=== PATIENT | male | born 1985 | race Caucasian/White ===

== ENCOUNTER 2024-01-04 14:26 | Emergency (ER) | payer OTHER, SELFPAY ==
[2024-01-04 14:35] VITALS: BP 75/49; BP 88/30; PULSE 80; PULSE 85; RESP 14; TEMP 36.9; O2SAT 94; BMI 18.2
[2024-01-04 14:43] VITALS: BP 83/34; PULSE 81; RESP 12; TEMP 37.5; O2SAT 93
--- NOTE | 2024-01-04 14:46 | ECG_ITS ---
Test Reason : SEIZURE Blood Pressure : / mmHG Vent. Rate : 076 BPM Atrial Rate : 076 BPM P-R Int : 170 ms QRS Dur : 110 ms QT Int : 422 ms P-R-T Axes : 066 077 035 degrees QTc Int : 474 ms Normal sinus rhythm Possible Left atrial enlargement Borderline ECG No previous ECGs available Referred By: Vanna Owusu Electronically Signed By:GERMAIN DIAZ MD
[2024-01-04] MEDS: 0.9 % Sodium Chloride 1,000 ML 999 ML IV (14:49)
--- NOTE | 2024-01-04 14:49 | PC.NURSE ---
Pt presents to ED via EMS from [facility] bus, bystander witnessed pt have tonic clonic seizure and pt was foaming at mouth. When EMS arrived, pt was alert and combative with fire (swinging and hitting). EMS sedated pt with 4 mg of Versed IM. Pt was hypotensive with EMS, they gave 500 mL of NS with no effect. Suspected drug use per EMS. Pt is responsive only to painful stimuli for brief periods, does not answer any questions. Breathing even, RR 10-14. Skin warm to touch, dry. Rectal temp afebrile. Pt placed on media monitor, NSR. RA SPO2 92-93%, pt placed on 2L O2 NC and improves to 96%. Seizure pads in place.
[2024-01-04 14:55] VITALS: BP 84/37; PULSE 79; RESP 12; O2SAT 96
[2024-01-04 15:01] LABS: Glucose, Whole Blood 119 mg/dL (60-115)
--- NOTE | 2024-01-04 15:04 | PC.NURSE ---
Pt awake now, answering some questions, able to tell RNs his name and date. Not answering other questions, unsure what happened today. Denies pain.
[2024-01-04 15:05] VITALS: BP 114/48; PULSE 95; RESP 16; O2SAT 99
--- NOTE | 2024-01-04 15:08 | ED_ITS ---
HPI - General Adult General Chief complaint: Altered Mental Status Stated complaint: ?SZ VS DRUG USE PER EMS Time Seen by Provider: 01/04/24 15:07 Source: patient Mode of arrival: ambulatory Limitations: no limitations History of Present Illness HPI narrative: unknown male came in after was found on [employer] bus unresponsive, questionable witnessed seizure by bystander patient was combative with EMS and staff needed 4 mg of Versed, on arrival patient was obtunded but responds to painful stimuli initially patient had hypotension was given fluids, after searching patient by security personnel found to have recreational drugs in his pocket possibly heroin, and cocaine. Related Data Allergies Allergy/AdvReac Type Severity Reaction Status Date / Time Unable to Assess Allergy Unverified 01/04/24 14:46 Review of Systems Review of Systems: all other systems are reviewed and are negative Constitutional: Reports as per HPI and Reports no additional constitutional complaints Eyes: Reports as per HPI and Reports no additional eye complaints Reports system reviewed and no additional complaints, except as documented Cardiovascular: Reports as per HPI and Reports no additional cardiovascular complaints Respiratory: Reports as per HPI and Reports no additional respiratory complaints Gastrointestinal: Reports as per HPI and Reports no additional gastrointestinal complaints Genitourinary: Reports no additional female genitourinary complaints Musculoskeletal: Reports no additional musculoskeletal complaints Skin/Breast: Reports system reviewed and no additional complaints, except as docu Psychiatric: Reports no additional psychiatric complaints Endocrine: Reports no additional endocrine complaints Hematologic/Lymphatic: Reports no additional hematologic/lymphatic complaints Allergic/Immunologic: Reports no additional allergic/immunologic complaints Reports system reviewed and no additional complaints, except as documented and Reports Abnormal speech present [facility] Social History Social History Advance Directives: No Physical Exam ED Vital Signs: Vital Signs - 24 hr 01/04/24 14:35 01/04/24 14:43 01/04/24 14:55 Temperature 98.5 F 99.5 F Pulse Rate 85 81 79 Respiratory Rate 14 12 12 Blood Pressure 88/30 L 83/34 L 84/37 L Pulse Oximetry 93 96 Oxygen Delivery Method Room Air Nasal Cannula Oxygen Flow Rate 2 01/04/24 15:05 Temperature Pulse Rate 95 Respiratory Rate 16 Blood Pressure 114/48 L Pulse Oximetry 99 Oxygen Delivery Method Room Air Oxygen Flow Rate BMI result Body Mass Index 18.2 Vital signs have been reviewed and appear to be correct. Blood pressure was low then improved after IV fluids.. Heart rate normal. Respiratory rate normal. Temperature normal. Oxygen saturation normal. Appearance: initially patient was only responding to painful stimuli, patient now is able to responds to verbal stimuli, carry on normal conversation, patient now is AAO x3, stated that he fell a sleep on the bus. patient now will leave against medical advice I discussed advantage and disadvantage of leaving AMA patient adamantly wants to leave, and refusing physical exam, patient declined SI or HI, this point patient is competent to make his own decision. Medications Administered Generic Name Dose Route Start Last Admin Trade Name Freq PRN Reason Stop Dose Admin Sodium Chloride 1,000 mls @ 999 mls/hr 01/04/24 15:00 01/04/24 14:49 Ns IV 01/04/24 16:00 999 mls/hr .Q1H1M FABBY Administration Medical Decision Making Differential Diagnosis Differential Diagnoses: The differential diagnosis associated with the presentation includes ( polysubstance abuse, dehydration, seizure.) Admission/Observation Consideration of admission/observation: Escalation of care including admission/observation considered Lab Data Labs: Lab Results 01/04/24 Range/Units 14:38 POC Glucose 119 H (60-115) mg/dL Discharge Plan Discharge Clinical Impression: Substance abuse Patient Disposition: Left Against Medical Advice
--- NOTE | 2024-01-04 15:35 | PC.NURSE ---
Pt initially difficult to arouse on arrival however after MD assessment pt increasingly agitated. Screaming I want to get the fuck out of here, Im fine, I want nothing from you people Security to bedside to assist, no hands on needed, verbal deescalation attempted with little effect. Adilene DENTON and Dr Owusu to bedside, pt alert/oriented x 3 and request to leave despite AMA warnings and risk discussed. IV removed and pt assisted to decon to leave.
[2024-01-04 16:25] VITALS: BP 114/48; PULSE 95; RESP 16; TEMP 36.9; O2SAT 98
== END 2024-01-04 16:27 | disposition left against medical advice (07) ==
PROVIDERS: Emergency Provider Emergency Medicine
DX: F19.10 Other psychoactive substance abuse, uncomplicated (principal); I95.9 Hypotension, unspecified
CPT/HCPCS: 82947; 93005; 99283; 99285

== ENCOUNTER → 2024-01-04 14:49 | Outpatient (BNV) | payer OTHER, SELFPAY | PROVIDERS: Emergency Provider Emergency Medicine; Visit Provider Internal Medicine Cardiovascular Disease | DX: R56.9 Unspecified convulsions (principal) | CPT/HCPCS: 93010 ==

== ENCOUNTER 2024-07-20 14:42 | Emergency (ER) | payer OTHER, SELFPAY ==
[2024-07-20 14:49] VITALS: BP 142/56; PULSE 101; O2SAT 99
--- NOTE | 2024-07-20 14:56 | ED_ITS ---
HPI - General Adult General Chief complaint: ETOH/Substance Use Stated complaint: OD,? NARCAN GIVEN PER EMS Time Seen by Provider: 07/20/24 14:55 Source: patient and EMS Mode of arrival: EMS Limitations: no limitations History of Present Illness ED Provider: Julissa Lynn PA-C HPI narrative: Patient is a 38 year old assigned male at with no reported medical history presenting to the emergency department today with no complaints. Patient states that he was forced to come to the hospital by the police. Patient states that he was sitting next to a building, awake and alert, with narcan near him. Patient states that he absolutely does not do drugs of any kind and does not want any medical attention. Patient denies any dizziness, lightheadedness, abdominal pain, nausea, vomiting, fever, chills, blurry vision, double vision, loss of vision, chest pain, difficulty breathing, shortness of breath, back pain, night sweats, pain with urination, increased urinary frequency, increased urinary urgency, blood in his urine or stool, syncope or a near syncopal episode, recent trauma or falls, bowel incontinence, bladder incontinence, or any other complaints at this time. Relieving factors: none Exacerbating factors: none Associated symptoms: denies other symptoms Treatments prior to arrival: none Related Data Allergies Allergy/AdvReac Type Severity Reaction Status Date / Time No Known Allergies Allergy Verified 07/20/24 14:59 Review of Systems Constitutional: Constitutional: Reports no additional constitutional com plaints, Denies chills, Denies fever(s) and Denies night sweats Eyes: Eyes: Reports no additional eye complaints, Denies blurry vision, Denies change in vision, Denies diplopia, Denies eye discharge, Denies loss of vision and Denies eye pain ENT: Denies dizziness Cardiovascular: Cardiovascular: Reports no additional cardiovascular complaints, Denies chest pain, Denies lightheadedness, Denies Loss of Consciousness and Denies dyspnea Respiratory: Respiratory: Reports no additional respiratory complaints and Denies dyspnea Gastrointestinal: Gastrointestinal: Reports no additional gastrointestinal complaints, Denies abdominal pain, Denies melena, Denies hematochezia, Denies change in bowel habits and Denies change in stool character Genitourinary: Genitourinary: Reports no additional male genitourinary complaints, Denies hematuria, Denies oliguria, Denies difficulty urinating, Denies dysuria, Denies urinary frequency, Denies urinary hesitancy, Denies urinary incontinence and Denies urinary urgency Musculoskeletal: Musculoskeletal: Reports no additional musculoskeletal complaints, Denies numbness and Denies tingling Neurologic: Denies dizziness, Denies loss of vision, Denies numbness and Denies tingling Psychiatric: Psychiatric: Reports no additional psychiatric complaints Endocrine: Endocrine: Reports no additional endocrine complaints Hematologic/Lymphatic: Hematologic/Lymphatic: Reports no additional hematologic/lymphatic complaints Allergic/Immunologic: Allergic/Immunologic: Reports no additional allergic/immunologic complaints [facility] Past Medical History Attestation statement: The following information was validated with the patient. Source: old records reviewed and nursing notes reviewed Physical Exam ED Vital Signs: Vital Signs - 24 hr 07/20/24 14:58 07/20/24 15:06 Temperature 97.9 F 97.9 F Pulse Rate 93 93 Respiratory Rate 18 18 Blood Pressure 122/50 L 122/50 L Pulse Oximetry 96 96 BMI result Body Mass Index 24.4 Const General: cooperative, no acute distress, alert and awake Nutritional Appearance: well nourished Orientation/consciousness: patient oriented x3 Limitations: no limitations HENMT Head: Yes normal to inspection and Yes atraumatic Ears: hearing grossly normal bilaterally and external ears normal General nose exam: Normal external nose present, no nasal discharge noted and no epistaxis Face and sinus: Yes normal facial exam, No abrasion and No laceration Mouth: Normal oral and palatal mucosa present, no drooling and no muffled voice Eyes General: appearance normal, both eyes and all related structures Periorbital: periorbital findings normal Eyelids: Yes eyelids normal Conjunctivae: conjunctivae normal Pupils: Equal, round and reactive pupils present EOM: EOMs intact bilaterally Neck Neck: Yes normal visual inspection, Yes full ROM and Yes no lymphadenopathy Chest Chest palpation & inspection: normal inspection of the chest Resp Effort & Inspection: normal respiratory effort and able to speak in complete sentences GI Inspection: Yes normal to inspection Neuro General: patient oriented x3 and moves all extremities Cranial nerves: Yes Equal, round and reactive pupils present Cognition (Neuro): normal cognition Extrem General: Yes normal to inspection, Yes full ROM and Yes capillary refill normal Psych Appearance: grossly normal Mental Status: mental status grossly normal Affect: normal affect Attitude: cooperative Thought process: Normal thought process present Thought content: Normal thought content present Insight: Good insight present (Psych) Medications Administered Discontinued Medications Generic Name Dose Route Start Last Admin Trade Name Tristan CARNEY Reason Stop Dose Admin Naloxone HCl 8 mg 07/20/24 14:57 07/20/24 15:07 Naloxone Hcl Nasal Take Home 4 Mg [place] NOSTRILALT 07/20/24 14:58 8 mg ONCE ONE Administration Medical Decision Making Medical Decision Making MDM Narrative: Patient is a 38 year old assigned male at with no reported medical history presenting to the emergency department today with no complaints. Patient's physical exam was unremarkable. Patient was of sound mind and decision making ability. Patient was steady on his feet. Patient refused any type of medical work up. I explained my physical exam findings as well as all test results to the patient. I answered all questions asked by the patient. Patient agreed to take Narcan and resources with him. Patient denied any suicidal or homicidal ideation. I stressed the importance of the patient taking his medication as directed (either prescribed or as the over the counter packaging recommends). I stressed the importance of the patient following up with his primary care provider. I stressed the importance of the patient returning to the emergency department immediately if his symptoms were to worsen or if he were to develop any dizziness, shortness of breath, difficulty breathing, chest pain, blurry vision, loss of vision, nausea, vomiting, abdominal pain, fever, chills, back pain, or any other complaints. Patient verbalized agreement and understanding with this treatment plan and discharge. Differential Diagnosis Differential Diagnoses: The differential diagnosis associated with the presentation includes Medical exam Normal exam Possible substance use / abuse Admission/Observation Consideration of admission/observation: Escalation of care including admission/observation considered Patient would have been admitted to the hospital had his clinical presentation warranted hospital admission. Independent Historian Clinical information obtained from an independent historian. History obtained from or confirmed by: EMS (EMS provided additional history and confirmed the history provided by the patient.) Discharge Plan Discharge Clinical Impression: Adult general medical exam Patient Disposition: Home, Self-Care Instructions: Normal Exam (ED) Additional Instructions: Please avoid use of illicit drugs. Follow up with your primary care provider. Return to the emergency department immediately if you develop any dizziness, shortness of breath, difficulty breathing, chest pain, blurry vision, loss of vision, nausea, vomiting, abdominal pain, fever, chills, back pain, or any other complaints. Referrals: [facility] [place] [facility] [place]] (Call to establish and follow up with a primary care provider. If you already have a primary care provider, please follow up with them.) [facility] [place] [facility]] (Call to establish and follow up with a primary care provider. If you already have a primary care provider, please follow up with them.) [facility] [place] [facility] [[facility]] (Call to establish and follow up with a primary care provider. If you already have a primary care provider, please follow up with them.) Interventions: ED Discharge Assessment Last Done: 07/20/24 15:06 Discharge Date/Time: 07/20/24 15:09 Print Language: [place]
[2024-07-20 14:58] VITALS: BP 122/50; PULSE 93; RESP 18; TEMP 36.6; O2SAT 96; BMI 24.4
[2024-07-20 15:06] VITALS: BP 122/50; PULSE 93; RESP 18; TEMP 36.6; O2SAT 96
[2024-07-20] MEDS: Naloxone HCl Nasal TAKE HOME 4 MG SPRAY 8 MG NOSTRILALT (15:07)
== END 2024-07-20 15:09 | disposition home or self-care (01) ==
LOC: HO.ED 15:02
PROVIDERS: Emergency Provider Emergency Medicine
DX: R41.82 Altered mental status, unspecified (principal)
CPT/HCPCS: 99282; 99283

== ENCOUNTER 2024-07-20 15:45 | Emergency (ER) | payer OTHER, SELFPAY ==
[2024-07-20] VITALS (11 sets, daily range): BP systolic 111–140; BP diastolic 48–71; PULSE 72–124; RESP 14–30; TEMP 36.3–37.3; O2SAT 95–100; BMI 25.1
--- NOTE | ~2024-07-20 | CT_ITS ---
EXAMINATION: CT CHEST WITHOUT CONTRAST CLINICAL INFORMATION: Fall. COMPARISON: None available. TECHNIQUE: Multidetector volumetric CT imaging of the chest was done. Axial MIP volume rendering provided. Sagittal and coronal reformatted images were obtained. This CT examination was performed using dose optimization techniques as appropriate, variously including the following: *Automated exposure control *Adjustment of mA and/or kV according to patient size (this includes techniques or standardized protocols for targeted exams where dose is matched to indication/reason for exam; i.e. extremities or head) *Use of iterative reconstruction technique DLP: 350.32 mGy-cm. FINDINGS: APPRENTICE PAINTER BRUSH: Unremarkable. LUNGS: There are multiple bilateral pulmonary nodules. The largest on the right within the right middle lobe measuring up to 0.4 cm (axial image 290/489) and within the right lower lobe measuring up to 0.4 cm (axial image 330/489). The largest within the left lower lobe measures up to 0.4 cm (axial image 357/489). No large pulmonary mass. No confluent airspace consolidation. Minimal scarring versus atelectasis within the lateral aspect of the left lung base. The central airways are patent. MEDIASTINUM: No cardiomegaly. No pericardial effusion. No thoracic aortic dilatation. No significant mediastinal or hilar lymphadenopathy, however, evaluation somewhat limited without IV contrast. Unremarkable thyroid. CORONARY ARTERY CALCIFICATION: None visualized on this study. PLEURA: No pleural effusion or pneumothorax. Right posteromedial pleural thickening without significant nodularity. AXILLA: No lymphadenopathy. UPPER ABDOMEN: Somewhat irregular hypodensity through the periphery of the right hepatic lobe measuring approximately 5.1 x 4.1 cm in greatest axial dimension and 30 Hounsfield units. Findings are nonspecific and if there is clinical concern, dedicated hepatic imaging could help further evaluate. The visualized upper abdominal structures are otherwise unremarkable. OSSEOUS STRUCTURES: There appear to be healed lateral left rib fractures. Age-indeterminant loss of anterior vertebral body height at T11 and T12. Findings are consistent with age-indeterminant compression deformities. No underlying lytic or blastic osseous lesion. Mild multilevel degenerative disc disease. CT/CT chest wo IV con IMPRESSION: 1. Multiple bilateral pulmonary nodules measuring up to 0.4 cm. According to the UPDATED 2017 Fleischner Society recommendations, the advised follow-up imaging for nodules <6mm in the upper lobes is not necessarily required in low-risk patients. In high-risk patients with a nodule in the upper lobe and/or demonstrating suspicious morphology, an optional CT follow-up at 12 months may be obtained. If stable at 12 months, no further follow-up is recommended. 2. No large pulmonary mass or confluent airspace consolidation. 3. Somewhat irregular hypodensity within the periphery of the right hepatic lobe measuring up to 5.1 cm in greatest axial dimension. Findings are nonspecific and if there is clinical concern, dedicated hepatic imaging could help further evaluate. 4. Age-indeterminant compression deformities at T11 and T12. Healed lateral left rib fractures. Fleischner guidelines were followed. Electronically signed by: Shin Corey MD 07/20/2024 08:59 PM EDT
--- NOTE | ~2024-07-20 | CT_ITS ---
EXAMINATION: CT brain and CT cervical spine without contrast. CLINICAL INDICATION: Fall and hit head. COMPARISON: CT brain 04/11/2014 and 02/17/2018. TECHNIQUE: 3 mm thin axial and reformatted 2 mm thin sagittal and coronal images of cervical spine were obtained. Subsequently axial 5 mm thin and reformatted 2 mm thin sagittal and coronal images of brain were obtained. DLP 1557. This CT examination was performed using dose optimization technique as appropriate, variously including the following: Automated exposure control Adjustment of MA and/or KV according to patient size(this includes techniques or standardized protocols for targeted exams where dose is matched to indication/reason for exam; extremities or head. Use of iterative reconstruction techniques. FINDINGS: Brain: There is no acute intra-axial, extra-axial bleed, masses or midline shift. There is no acute infarction in evolution. There is no edema. The jimenez to white matter differentiation is maintained normal. The lateral ventricles are symmetrical in size and configuration without enlargement. Bone windows reveal no calvarial abnormality. There is no scalp soft tissue abnormality. Bilateral paranasal sinuses and mastoid air cells are well-aerated with small polyp right middle ethmoid sinus. The mastoid sinuses are clear. Cervical spine: There is mild straightening of cervical lordosis. The vertebral heights, alignment and disc heights are normal. There is no visible acute fracture, dislocation or subluxation seen. The craniovertebral junction and the C1-C2 alignment is normal. The prevertebral and paravertebral soft tissues are normal. The lung apices are clear central tracheal airway is widely patent. CT/CT cervical spine wo IV con IMPRESSION: 1. No acute intracranial process seen. 2. Mild straightening of cervical lordosis likely spasm. No visible acute fracture, dislocation or subluxation seen. No acute intracranial process seen. 3. Mild straightening of cervical lordosis without visible acute fracture, dislocation or subluxation seen. Electronically signed by: Delmar Dubose MD 07/20/2024 08:51 PM EDT
--- NOTE | ~2024-07-20 | CT_ITS ---
EXAMINATION: CT brain and CT cervical spine without contrast. CLINICAL INDICATION: Fall and hit head. COMPARISON: CT brain 04/11/2014 and 02/17/2018. TECHNIQUE: 3 mm thin axial and reformatted 2 mm thin sagittal and coronal images of cervical spine were obtained. Subsequently axial 5 mm thin and reformatted 2 mm thin sagittal and coronal images of brain were obtained. DLP 1557. This CT examination was performed using dose optimization technique as appropriate, variously including the following: Automated exposure control Adjustment of MA and/or KV according to patient size(this includes techniques or standardized protocols for targeted exams where dose is matched to indication/reason for exam; extremities or head. Use of iterative reconstruction techniques. FINDINGS: Brain: There is no acute intra-axial, extra-axial bleed, masses or midline shift. There is no acute infarction in evolution. There is no edema. The jimenez to white matter differentiation is maintained normal. The lateral ventricles are symmetrical in size and configuration without enlargement. Bone windows reveal no calvarial abnormality. There is no scalp soft tissue abnormality. Bilateral paranasal sinuses and mastoid air cells are well-aerated with small polyp right middle ethmoid sinus. The mastoid sinuses are clear. Cervical spine: There is mild straightening of cervical lordosis. The vertebral heights, alignment and disc heights are normal. There is no visible acute fracture, dislocation or subluxation seen. The craniovertebral junction and the C1-C2 alignment is normal. The prevertebral and paravertebral soft tissues are normal. The lung apices are clear central tracheal airway is widely patent. CT/CT head/brain wo IV con IMPRESSION: 1. No acute intracranial process seen. 2. Mild straightening of cervical lordosis likely spasm. No visible acute fracture, dislocation or subluxation seen. No acute intracranial process seen. 3. Mild straightening of cervical lordosis without visible acute fracture, dislocation or subluxation seen. Electronically signed by: Delmar Dubose MD 07/20/2024 08:51 PM EDT RP
--- NOTE | 2024-07-20 16:09 | ECG_ITS ---
Test Reason : seizure Blood Pressure : / mmHG Vent. Rate : 082 BPM Atrial Rate : 082 BPM P-R Int : 162 ms QRS Dur : 094 ms QT Int : 366 ms P-R-T Axes : 075 086 067 degrees QTc Int : 427 ms Normal sinus rhythm Normal ECG When compared with ECG of 04-JAN-2024 14:49, No significant change was found Referred By: Abrahan Tariq Electronically Signed By:ANMOL TAVARES
[2024-07-20] MEDS: droPERidol 5 MG/2 ML VIAL 1.25 MG IVPUSH (16:16)
--- NOTE | 2024-07-20 16:16 | PC.NURSE ---
upon this RN attempting to write triage note, pt found to be face down seizing in bed - brought in ED 6 for monitoring, given multiple rounds of Ativan, as well as narcan and droperidol see MAR
[2024-07-20] MEDS: LORazepam 2 MG/ML VIAL IVPUSH ×2 (16:17→16:19)
[2024-07-20] MEDS: LORazepam 2 MG/ML VIAL IM (16:19)
[2024-07-20] MEDS: Magnesium Sulfate/D5W 1 GM/100 ML PIGGYBACK IV (16:19)
[2024-07-20] MEDS: ondansetron HCL 4 MG/2 ML VIAL IVPUSH (16:19)
[2024-07-20 16:24] LABS: Glucose, Whole Blood 107 mg/dL (60-115)
--- NOTE | 2024-07-20 16:28 | ED_ITS ---
HPI - General Adult General Chief complaint: Fall Stated complaint: fell and hit head, ?substance use Time Seen by Provider: 07/20/24 16:04 Source: patient, RN notes reviewed and old records reviewed Mode of arrival: EMS Limitations: altered mental status and other History of Present Illness ED Provider: Marciano HPI narrative: 38-year-old male presents for evaluation after a witnessed fall with seizure- like activity. Patient was just discharged from this facility He was brought in against his wishes after being threatened with arrest The patient previously denied any drug use today per his previous note The patient was reported to be alert and oriented at his visit a couple of hours ago After being discharged from this hospital the patient was apparently witnessed by bystanders in the community tripping over the curb, falling, striking his head and having reported seizure-like activity. The patient arrives combative, uncooperative Related Data Allergies Allergy/AdvReac Type Severity Reaction Status Date / Time No Known Allergies Allergy Verified 07/20/24 16:14 Review of Systems 2 Review of Systems: Unable to obtain Yes Unobtainable due to mental status PMFSH Social History Social History Smoked in Last 30 Days: Yes Use of substances other than those prescribed or required for medical reasons: Yes Advance Directives: No Advance Directives Information Provided: No Physical Exam ED Vital Signs: Vital Signs - 24 hr 07/20/24 15:56 07/20/24 16:19 07/20/24 16:39 Temperature Pulse Rate 90 124 H 119 H Respiratory Rate 28 H 25 H 30 H Blood Pressure 116/68 116/61 Pulse Oximetry 99 95 95 Oxygen Delivery Method Room Air Room Air Room Air Oxygen Flow Rate 07/20/24 16:50 07/20/24 16:52 07/20/24 17:30 Temperature Pulse Rate 122 H 119 H 100 Respiratory Rate 20 20 19 Blood Pressure 134/49 L 126/55 L 122/48 L Pulse Oximetry 97 95 Oxygen Delivery Method Room Air Room Air Oxygen Flow Rate 07/20/24 18:12 07/20/24 18:32 07/20/24 18:57 Temperature 99.1 F 97.5 F Pulse Rate 100 85 110 H Respiratory Rate 14 15 16 Blood Pressure 123/71 117/64 112/57 L Pulse Oximetry 100 98 98 Oxygen Delivery Method Nasal Cannula Room Air Nasal Cannula with ETCO2 Oxygen Flow Rate 4 2 07/20/24 20:41 07/20/24 22:50 07/21/24 02:35 Temperature 97.3 F Pulse Rate 103 H 72 73 Respiratory Rate 14 15 16 Blood Pressure 140/68 H 111/63 111/60 Pulse Oximetry 96 95 98 Oxygen Delivery Method Nasal Cannula with ETCO2 Room Air Room Air Oxygen Flow Rate 2 BMI result Body Mass Index 25.1 Const General: awake Nutritional Appearance: well nourished Orientation/consciousness: No oriented to person, No oriented to place and No oriented to time HENMT Other: Small, superficial laceration to the right posterior scalp. Minimal active bleeding Eyes Eyelids: Yes eyelids normal Conjunctivae: conjunctivae normal Sclerae: sclerae normal Corneas: corneas normal Pupils: Equal, round and reactive pupils present EOM: EOMs intact bilaterally Neck Neck: Yes full ROM Resp Effort & Inspection: normal respiratory effort, able to speak in complete sentences and not labored Cardio Rate: regular rate Rhythm: regular rhythm GI Inspection: No distended Palpation (GI): Soft to palpation, not firm, nontender, no guarding and not rigid Skin General skin exam: elasticity normal Neuro General: No oriented to person, No oriented to place and No oriented to time Cranial nerves: Yes Equal, round and reactive pupils present and Yes Bilaterally intact EOM present Motor exam (neuro): 5/5 motor strength present throughout Extrem Other: Moving all extremities well without any obvious deformities Course Reevaluation(s) Reevaluation #1: I was asked to evaluate the patient immediately after entering for my shift. Apparently the patient was recently discharged from this hospital. He had no complaints. He then made it to blocks down the street, he was witnessed by bystanders tripping over a curb, falling and striking his head. He appeared to have seizure-like activity immediately after. The patient arrives to the ED combative, uncooperative. He has a small laceration to the head with some bleeding. He was medically restrained for his safety and to facilitate workup. See nursing notes and medication orders Time: 16:28 Reevaluation #2: Patient is still agitated, fidgeting around, unable to even draw labs or obtain imaging. The remains a fairly high suspicion for TBI and the patient needs to get CT scan. I ordered Versed 2 mg IV. Magnesium was given as the patient received antipsychotics prior to receiving his EKG as we are unable to obtain 1. Time: 16:52 Reevaluation #3: Patient continued to be agitated, uncooperative we are unable to draw labs and imaging at this point. He was still sitting up, trying to remove his own restraints, swearing at staff. He was given ketamine 100 mg IM. This was lower than 4 milligrams/kilogram due to the polypharmacy he had previously received. Time: 17:54 Additional Reevaluation(s): 2016: Patient awakened, continuing to scream and yell, he attempted to kick staff numerous times. At this time, the patient received numerous medications, I do not feel he has a still awaiting his official CT reports, he will be medically restrained again with Versed for his safety and the safety of staff. Patient remains uncooperative, he is now spitting at staff, continued to thrash around. He will be given ketamine 200 mg IM for safety as well as to prevent rhabdo 22:33 patient awakened, he is still somewhat agitated but more cooperative and redirectable. We are able to remove 2 of the restraints and the patient is resting comfortably 07/21/2024 1:02 a.m. patient continuing to rest comfortably, his vital signs have remained stable, his heart rate has improved. He is now out of all restraints. Patient is a sober re-evaluation 07/21/2024 at 06:16 hours, Dr. Shahzad Murray's note: I assumed care of this patient from my colleague, physician clinical laboratory assistant Abrahan Tariq at 02:00 hours. Patient was now awake and alert, he was able to walk without any difficulty. Therefore the patient will be discharged home. Medications Administered Discontinued Medications Generic Name Dose Route Start Last Admin Trade Name Freq PRN Reason Stop Dose Admin Droperidol 1.25 mg 07/20/24 16:06 07/20/24 16:16 Droperidol 5 Mg/2 Ml Vial IVPUSH 07/20/24 16:07 1.25 mg ONCE ONE Administration Haloperidol Lactate 5 mg 07/20/24 16:58 07/20/24 17:03 Haloperidol Lactate 5 Mg/Ml Vial IVPUSH 07/20/24 16:59 5 mg STAT STA Administration Magnesium Sulfate/Dextrose 1 gm in 100 mls @ 100 mls/hr 07/20/24 16:06 07/20/24 17:30 Magnesium Sulfate/D5w IV 07/20/24 17:05 Infused ONCE ONE Infusion Sodium Chloride 1,000 mls @ 999 mls/hr 07/20/24 16:30 07/20/24 17:30 Ns IV 07/20/24 17:30 Infused .Q1H1M FABBY Infusion Ketamine HCl 100 mg 07/20/24 17:39 07/20/24 17:46 Ketamine Hcl 500 Mg/5 Ml Vial IM 07/20/24 17:40 100 mg ONCE ONE Administration Ketamine HCl 200 mg 07/20/24 20:30 07/20/24 20:35 Ketamine Hcl 500 Mg/5 Ml Vial IM 07/20/24 20:31 200 mg ONCE ONE Administration Lorazepam 2 mg 07/20/24 16:02 07/20/24 16:19 Lorazepam 2 Mg/Ml Vial IVPUSH 07/20/24 16:03 2 mg ONCE ONE Administration Lorazepam 2 mg 07/20/24 16:02 07/20/24 16:19 Lorazepam 2 Mg/Ml Vial IM 07/20/24 16:03 2 mg ONCE ONE Administration Lorazepam 2 mg 07/20/24 16:09 07/20/24 16:17 Lorazepam 2 Mg/Ml Vial IVPUSH 07/20/24 16:10 2 mg ONCE ONE Administration Midazolam HCl 2 mg 07/20/24 16:46 07/20/24 16:50 Midazolam Hcl/Pf 2 Mg/2 Ml Vial IVPUSH 07/20/24 16:47 2 mg ONCE ONE Administration Midazolam HCl 2 mg 07/20/24 20:15 07/20/24 20:19 Midazolam Hcl/Pf 2 Mg/2 Ml Vial IVPUSH 07/20/24 20:16 2 mg ONCE ONE Administration Naloxone HCl 1 mg 07/20/24 16:24 07/20/24 16:39 Naloxone Hcl 2 Mg/2 Ml Syringe IVPUSH 07/20/24 16:25 1 mg ONCE ONE Administration Ondansetron HCl 4 mg 07/20/24 16:02 07/20/24 16:19 Ondansetron Hcl 4 Mg/2 Ml Vial IVPUSH 07/20/24 16:03 4 mg ONCE ONE Administration Medical Decision Making Medical Decision Making MDM Narrative: 28-year-old male presents for evaluation after a witnessed fall and possible seizure-like activity. The patient is agitated, uncooperative. Plan to physically and chemically restrained the patient to facilitate workup including CT imaging of the brain and C-spine. We will also check labs. The patient is not in any respiratory distress, he is tachycardic, we are had thus far been unable to get an EKG. Differential Diagnosis Differential Diagnoses: The differential diagnosis associated with the presentation includes TBI Intracranial hemorrhage Seizure Substance abuse Encephalopathy Lab Data MDM Lab Attestation statement: I reviewed the patient's lab results. Patient does have a leukocytosis to 16.2 K. This may be reactive to substance abuse versus a seizure disorder. He has a mild anemia which has been present in the past, no electrolyte abnormalities 07/20/24 18:07 07/20/24 18:07 Labs: Lab Results 07/20/24 07/20/24 07/20/24 Range/Units 16:02 18:07 19:03 WBC 16.2 H (4.8-10.8) X10*3/uL RBC 4.09 L (4.60-5.80) X10*6/uL Hgb 12.8 L (14.0-18.0) g/dl Hct 36.9 L (42.0-52.0) % MCV 90.2 (80.0-98.0) fL MCH 31.3 (27.0-33.0) pg MCHC 34.7 (31.0-36.0) g/dl RDW 12.9 (11.0-16.0) % Plt Count 231 (160-400) X10*3/uL MPV 9.3 L (9.4-12.4) fL Immature Gran % (Auto) 0.4 (0.0-0.4) % Neut % (Auto) 88.6 H (45-73) % Lymph % (Auto) 6.3 L (20-40) % [place] % (Auto) 4.0 (2-11) % Eos % (Auto) 0.2 (0-4) % Baso % (Auto) 0.5 (0-2) % Lymph # (Auto) 1.0 L (1.2-4.9) X10*3/uL [place] # (Auto) 0.6 (0.1-1.2) X10*3/uL Eos # (Auto) 0.0 (0.0-0.4) X10*3/uL Baso # (Auto) 0.1 (0.0-0.2) X10*3/uL Abs Immat Gran (auto) 0.07 H (0.00-0.03) X10*3/uL Absolute Neuts (auto) 14.3 H (2.0-8.3) x10*3/uL Absolute Nucleated RBC 0.000 (0.0-0.012) X10*3/uL Nucleated RBC % (auto) 0.0 (0.0-0.2) /100WBC PT 10.9 (10.9-12.4) SEC INR 0.9 (0.9-1.1) APTT 25.8 L (26.0-36.8) SEC Sodium 138 (135-145) mmol/L Potassium 3.9 (3.3-5.1) mmol/L Chloride 108 (96-108) mmol/L Carbon Dioxide 23 (22-29) mmol/L Anion Gap 11 L (12-20) BUN 10 (9-16) mg/dL Creatinine 0.77 (0.5-1.4) mg/dL Estim Creat Clear Calc 120.4 Estimated GFR > 60 POC Glucose 107 (60-115) mg/dL Random Glucose 87 (60-115) mg/dL Calcium 8.5 (8.4-10.2) mg/dL Total Bilirubin 0.9 (0.0-1.0) mg/dL AST 14 (5-37) U/L ALT 12 (0-40) U/L Alkaline Phosphatase 47 (39-117) U/L Total Creatine Kinase 578 H (38-174) U/L Total Protein 6.0 L (6.5-8.0) g/dL Albumin 3.7 (3.5-5.0) g/dL Urine Opiates Screen POSITIVE H (Not Detect) Ur Buprenorphine Scrn Not Detected (Not Detect) ng/mL Ur Oxycodone Screen Not Detected (Not Detect) ng/mL Urine Methadone Screen Not Detected (Not Detect) ng/mL Urine Fentanyl Screen POSITIVE H (Not Detect) Ur Barbiturates Screen Not Detected (Not Detect) Ur Phencyclidine Scrn Not Detected (Not Detect) Ur Amphetamines Screen Not Detected (Not Detect) U Benzodiazepines Scrn POSITIVE H (Not Detect) Urine Cocaine Screen POSITIVE H (Not Detect) U Marijuana (THC) Screen Not Detected (Not Detect) Ethyl Alcohol < 10 mg/dL Independent Interpretation I performed an independent interpretation of an: EKG (Normal sinus rhythm with a rate of [address] segment changes. QTC 427, within normal limits.) Radiology Impression Discussion of test interpretation with radiology: I have reviewed the radiologist's reading. Radiologist Impression: FINDINGS: Brain: There is no acute intra-axial, extra-axial bleed, masses or midline shift. There is no acute infarction in evolution. There is no edema. The jimenez to white matter differentiation is maintained normal. The lateral ventricles are symmetrical in size and configuration without enlargement. Bone windows reveal no calvarial abnormality. There is no scalp soft tissue abnormality. Bilateral paranasal sinuses and mastoid air cells are well-aerated with small polyp right middle ethmoid sinus. The mastoid sinuses are clear. Cervical spine: There is mild straightening of cervical lordosis. The vertebral heights, alignment and disc heights are normal. There is no visible acute fracture, dislocation or subluxation seen. The craniovertebral junction and the C1-C2 alignment is normal. The prevertebral and paravertebral soft tissues are normal. The lung apices are clear central tracheal airway is widely patent. CT/CT head/brain wo IV con IMPRESSION: 1. No acute intracranial process seen. 2. Mild straightening of cervical lordosis likely spasm. No visible acute fracture, dislocation or subluxation seen. No acute intracranial process seen. 3. Mild straightening of cervical lordosis without visible acute fracture, dislocation or subluxation seen. Electronically signed by: Delmar Dubose MD 07/20/2024 08:51 PM EDT Critical Care Time Critical Care Time Critical Care Time: Yes Total Critical Care Time: 60 Attestation: Patient required numerous re-evaluations, multiple sedative medications in order to facilitate workup Discharge Plan Discharge Clinical Impression: Altered mental status, Polysubstance abuse, Agitation Patient Disposition: Home, Self-Care Instructions: Polysubstance Abuse (ED) Additional Instructions: Avoid illicit substances Follow-up with your primary doctor Return for new or worsening since Print Language: Gabonese
--- NOTE | 2024-07-20 16:31 | PC.NURSE ---
unable to attempt blood work or obtain EKG at this time d/t pts restlessness and uncooperative
[2024-07-20] MEDS: 0.9 % Sodium Chloride 1,000 ML 999 ML IV (16:39)
[2024-07-20] MEDS: Naloxone HCl 2 MG/2 ML SYRINGE 1 MG IVPUSH (16:39)
[2024-07-20] MEDS: Midazolam HCl/PF 2 MG/2 ML VIAL IVPUSH ×2 (16:50→20:19)
[2024-07-20] MEDS: Haloperidol Lactate 5 MG/ML VIAL IVPUSH (17:03)
--- NOTE | 2024-07-20 17:27 | PC.NURSE ---
pt continues to be restless, uncooperative, pulling against soft restraints screaming Come on that he needs to leave to catch a bus. education provided that pt cannot leave at this time d/t risk for injury and altered mental/unsafe discharge. educated pt that he needs lab work and head CT, pt states OK laying back in the bed for a short time before sitting up again and screaming come on . continued delay on EKG, lab work and imaging. BERTIN ferrer
[2024-07-20] MEDS: Ketamine HCl 500 MG/5 ML VIAL 100 MG IM (17:46)
[2024-07-20 18:10] LABS: MANUAL DIFF FLAG NO
[2024-07-20 18:14] LABS: Basophils Absolute Auto 0.1 X10*3/uL (0.0-0.2); Basophils Percent Auto 0.5 % (0-2); Eosinophils Percent Auto 0.2 % (0-4); Hematocrit 36.9 % (42.0-52.0); Hemoglobin 12.8 g/dl (14.0-18.0); Imm Gran Abs Auto 0.07 X10*3/uL (0.00-0.03); Imm Gran Pct Auto 0.4 % (0.0-0.4); Lymphocytes Percent Auto 6.3 % (20-40); Mean Corpuscular HGB Conc 34.7 g/dl (31.0-36.0); Mean Corpuscular Hemoglobin 31.3 pg (27.0-33.0); Mean Corpuscular Volume 90.2 fL (80.0-98.0); Mean Platelet Volume 9.3 fL (9.4-12.4); Monocytes Absolute Auto 0.6 X10*3/uL (0.1-1.2); Neutrophils Absolute Auto 14.3 x10*3/uL (2.0-8.3); Neutrophils Percent Auto 88.6 % (45-73); Platelet Count 231 X10*3/uL (160-400); Red Blood Count 4.09 X10*6/uL (4.60-5.80); Red Cell Distribution Width 12.9 % (11.0-16.0); White Blood Count 16.2 X10*3/uL (4.8-10.8)
[2024-07-20 18:17] LABS: INTERNATIONAL NORM RATIO 0.9 (0.9-1.1); Prothrombin Time 10.9 SEC (10.9-12.4)
[2024-07-20 18:19] LABS: Partial Thromboplastin Time 25.8 SEC (26.0-36.8)
--- NOTE | 2024-07-20 18:26 | PC.NURSE ---
brought pt to CT and obtained blood work, rectal temp and changed pt in [facility]. placed a condom cath on pt
[2024-07-20 18:36] LABS: Alanine Aminotransferase 12 U/L (0-40); Albumin Level 3.7 g/dL (3.5-5.0); Alkaline Phosphatase 47 U/L (39-117); Anion Gap 11 (12-20); Aspartate Amino Transferase 14 U/L (5-37); Bilirubin Total 0.9 mg/dL (0.0-1.0); Blood Urea Nitrogen 10 mg/dL (9-16); Calcium 8.5 mg/dL (8.4-10.2); Carbon Dioxide 23 mmol/L (22-29); Chloride 108 mmol/L (96-108); Creatinine Clr Calc Pharmacy 120.4; Estimated Glomerular Filt Rate > 60; Ethanol < 10 mg/dL; Glucose Random 87 mg/dL (60-115); Potassium 3.9 mmol/L (3.3-5.1); Sodium 138 mmol/L (135-145)
--- NOTE | 2024-07-20 19:11 | PC.NURSE ---
pt awoke and yelling, trying to get out of restraints. pt is confused, unable to understand what pt is yelling. reassured to lay back and sleep, pt now sleeping. vitals as documented. sitter at bedside.
[2024-07-20 19:20] LABS: Amphetamine Screen Urine Not Detected (Not Detect); Barbiturates, Urine Not Detected (Not Detect); Benzodiazepines Screen Urine POSITIVE (Not Detect); Buprenorphine Scr Not Detected (Not Detect); Cannabinoid Screen Urine Not Detected (Not Detect); Cocaine Screen Urine POSITIVE (Not Detect); Fentanyl, urine POSITIVE (Not Detect); Methadone Screen, Urine Not Detected (Not Detect); Opiate Screen Urine POSITIVE (Not Detect); Oxycodone Screen Urine Not Detected (Not Detect); Phencyclidine Screen Urine Not Detected (Not Detect)
--- NOTE | 2024-07-20 20:21 | PC.NURSE ---
pt awoke trying to get out of restraints, making insulting comments to staff and tried to kick staff. pt previously in soft restraints/medicated d/t behavior after seizure. pt is not oriented to place/time, awaiting ct scan results after fall and +headstrike. 2034- per provider soft restraints removed, velcro restraints placed instead and pt medicated per dec. 1:1 sitter at bedside.
[2024-07-20] MEDS: Ketamine HCl 500 MG/5 ML VIAL 200 MG IM (20:35)
--- NOTE | 2024-07-20 23:50 | PC.NURSE ---
restraints completely removed. Dalton DENTON at bedside. pt is axox4 calm/cooperative. pt repositioned self to right side after removing restraints. 1:1 sitter remains at bedside.
--- NOTE | 2024-07-21 00:34 | MHC.EDTECH ---
midnight vitals not obtained r/t pt agitate behavior and currently resting
[2024-07-21 02:35] VITALS: BP 111/60; PULSE 73; RESP 16; O2SAT 98
--- NOTE | 2024-07-21 05:12 | PC.NURSE ---
pt awakes at times, looks around then goes back to sleep. awaiting sober re-eval upon awaking and per provider if pt axox4 ambulatory pt can be discharged.
[2024-07-21 06:26] VITALS: BP 111/60; PULSE 73; RESP 16; TEMP -17.7; TEMP 0; O2SAT 98
== END 2024-07-21 06:30 | disposition home or self-care (01) ==
PROVIDERS: Physician Assistant; Emergency Provider Internal Medicine
DX: S01.01XA Laceration without foreign body of scalp, initial encounter (principal); T40.5X5A Adverse effect of cocaine, initial encounter; R41.82 Altered mental status, unspecified; R00.0 Tachycardia, unspecified; R56.9 Unspecified convulsions; M54.2 Cervicalgia; R51.9 Headache, unspecified; R07.89 Other chest pain; Y92.89 Other specified places as the place of occurrence of the external cause; X58.XXXA Exposure to other specified factors, initial encounter; Y93.89 Activity, other specified; Y99.8 Other external cause status; Z51.81 Encounter for therapeutic drug level monitoring; Z79.899 Other long term (current) drug therapy
CPT/HCPCS: 36415; 70450; 71250; 72125; 80053; 80307; 82550; 82947; 85025; 85610; 85730; 93005; 96365; 96372; 96375; 99285; J1630; J1790; J2060; J2250; J2310; J2405; J3475

== ENCOUNTER → 2024-07-20 16:09 | Outpatient (BNV) | payer OTHER, SELFPAY | PROVIDERS: Emergency Provider Internal Medicine; Visit Provider Internal Medicine | DX: R56.9 Unspecified convulsions (principal) | CPT/HCPCS: 93010 ==

== ENCOUNTER 2024-08-12 10:03 | Emergency (ER) | payer OTHER, SELFPAY ==
[2024-08-12 10:24] VITALS: BP 119/58; PULSE 78; RESP 16; TEMP 36.7; O2SAT 96; BMI 24.2
[2024-08-12 10:36] LABS: MANUAL DIFF FLAG NO
[2024-08-12 10:38] LABS: Basophils Absolute Auto 0.2 X10*3/uL (0.0-0.2); Basophils Percent Auto 1.7 % (0-2); Eosinophils Absolute Auto 0.5 X10*3/uL (0.0-0.4); Eosinophils Percent Auto 5.1 % (0-4); Hematocrit 38.4 % (42.0-52.0); Hemoglobin 13.3 g/dl (14.0-18.0); Imm Gran Abs Auto 0.02 X10*3/uL (0.00-0.03); Imm Gran Pct Auto 0.2 % (0.0-0.4); Lymphocytes Absolute Auto 2.7 X10*3/uL (1.2-4.9); Lymphocytes Percent Auto 28.9 % (20-40); Mean Corpuscular HGB Conc 34.6 g/dl (31.0-36.0); Mean Corpuscular Hemoglobin 31.6 pg (27.0-33.0); Mean Corpuscular Volume 91.2 fL (80.0-98.0); Mean Platelet Volume 9.1 fL (9.4-12.4); Monocytes Absolute Auto 0.5 X10*3/uL (0.1-1.2); Monocytes Percent Auto 5.5 % (2-11); Neutrophils Absolute Auto 5.4 x10*3/uL (2.0-8.3); Neutrophils Percent Auto 58.6 % (45-73); Platelet Count 267 X10*3/uL (160-400); Red Blood Count 4.21 X10*6/uL (4.60-5.80); Red Cell Distribution Width 12.8 % (11.0-16.0); White Blood Count 9.2 X10*3/uL (4.8-10.8)
[2024-08-12 10:56] LABS: Alanine Aminotransferase 30 U/L (0-40); Alkaline Phosphatase 47 U/L (39-117); Anion Gap 14 (12-20); Aspartate Amino Transferase 17 U/L (5-37); Bilirubin Total 0.5 mg/dL (0.0-1.0); Blood Urea Nitrogen 12 mg/dL (9-16); Calcium 8.6 mg/dL (8.4-10.2); Carbon Dioxide 27 mmol/L (22-29); Chloride 109 mmol/L (96-108); Creatinine Clr Calc Pharmacy 101.8; Estimated Glomerular Filt Rate > 60; Ethanol < 10 mg/dL; Glucose Random 95 mg/dL (60-115); Magnesium 2.3 mg/dL (1.6-2.6); Potassium 4.1 mmol/L (3.3-5.1); Sodium 146 mmol/L (135-145); Total Protein 6.5 g/dL (6.5-8.0)
--- NOTE | 2024-08-12 11:02 | PC.NURSE ---
Pt BIBA from the street, PD called due to finding him in street, nodding off. No narcan given. EMS reported pt made SI statements about shooting his head off with shot gun . Pt agitated here, alert but has periods of somnolence. Angry and yelling intermittently. Breathing even and unlabored. Denying any SI or HI at this time. Pt changed over into safety clothing by security and belongings to [facility]. 1:1 sitter.
--- NOTE | 2024-08-12 11:07 | PC.NURSE ---
Pt refusing CT scan, yelling. Provider alerted.
--- NOTE | 2024-08-12 11:08 | ED.GENADULT ---
HPI - General Adult General Chief complaint: Psychiatric Symptoms Stated complaint: DRUG USE Time Seen by Provider: 08/12/24 10:15 Source: patient and EMS Mode of arrival: EMS Limitations: other (POOR HISTORIAN ) History of Present Illness ED Provider: BERTIN Alcantara HPI narrative: This is a 39-year-old male history of substance use disorder presenting to the emergency department status post being found nodding off by police, patient denied drug use however. Patient initially was not going to come to the hospital and said he was going to the bus stop however moments after saying that police left, they got a call that patient was sitting in the street, not in off. Narcan was not administered. Patient reported to EMS I am going to shoot my head off with a shotgun . Patient angry to be here, agitated. And refusing to answer questions related to his history and review of systems. Related Data Allergies Allergy/AdvReac Type Severity Reaction Status Date / Time No Known Allergies Allergy Verified 08/12/24 10:25 Review of Systems Review of Systems: Yes Other (Refusing to contribute to history and review of systems) [facility] Past Medical History Attestation statement: The following information was validated with the patient. Source: old records reviewed and nursing notes reviewed Social History Social History Smoked in Last 30 Days: Yes Use of substances other than those prescribed or required for medical reasons: Yes Substance Use Type: Heroin Advance Directives: No Advance Directives Information Provided: No Physical Exam ED Vital Signs: Vital Signs - 24 hr 08/12/24 10:24 Temperature 98.1 F Pulse Rate 78 Respiratory Rate 16 Blood Pressure 119/58 L Pulse Oximetry 96 Oxygen Delivery Method Room Air BMI result Body Mass Index 24.2 vss Appearance: Alert.? Oriented X3.? No acute distress.? Patient unkempt Head: Normocephalic, atraumatic, no step-offs or deformities Eyes: Pupils equal, round and reactive to light.? ENT: Pharynx normal.? Neck: Normal inspection.? Neck supple.? CVS: Normal heart rate and rhythm.? Pulses normal.? Respiratory: No respiratory distress.? Breath sounds normal.? Abdomen: Soft and nontender.? Skin: Skin warm and dry.? Normal skin color.? Normal skin turgor.? Extremities: No lower extremity edema.? No calf ttp. 5/5 strength to bilateral upper and lower extremities Neuro: Oriented X 3.? No motor deficit.? No sensory deficit. CN 2-12 intact . Ambulating with steady gait normal coordination Course Reevaluation(s) Reevaluation #1: CBC unremarkable. Chemistry no acute findings needing intervention. Ethanol level negative. Urine toxicology pending. Patient continues to refuses CT scan of the head. Time: 11:13 Reevaluation #2: Patient again refused CT scan of the head. States he is fine and just wants to sleep. Patient resting in the stretcher with no complaints. At this time patient will be placed into physician observation to allow more time to be evaluated by recovery/care team for substance use disorder evaluation. He will be sent home with Narcan. Time: 13:10 Reevaluation #3: Patient appears much more sober now admits to drug use. He is not suicidal or homicidal. Does not want harm anyone. He does not want any resources or help from detox or recovery. Does not want meet with care team. He states he is fine. Would like to leave. I feel comfortable this plan. No indication for Section 12. Time: 13:47 Medical Decision Making Medical Decision Making [facility] Narrative: 39 year old male presents for suspected substance abuse although he denies drug use. Brought in with police and EMS. Physical exam benign. Patient agitated however and angry. History and physical exam consistent with likely polysubstance abuse versus opiate misuse. Unlikely alcohol intoxication. No signs of trauma on exam unlikely intracranial hemorrhage stroke, posterior stroke. No signs of trauma to chest, abdomen or pelvis. Plan labs, head CT, drug abuse screening, ethanol level on patient. Differential Diagnosis Differential Diagnoses: The differential diagnosis associated with the presentation includes (History and physical exam consistent with likely polysubstance abuse versus opiate misuse. Unlikely alcohol intoxication. No signs of trauma on exam unlikely intracranial hemorrhage stroke, posterior stroke. No signs of trauma to chest, abdomen or pelvis.) Admission/Observation Consideration of admission/observation: Escalation of care including admission/observation considered Lab Data [facility] Lab Attestation statement: I reviewed the patient's lab results. 08/12/24 10:33 08/12/24 10:33 Labs: Lab Results 08/12/24 Range/Units 10:33 WBC 9.2 (4.8-10.8) X10*3/uL RBC 4.21 L (4.60-5.80) X10*6/uL Hgb 13.3 L (14.0-18.0) g/dl Hct 38.4 L (42.0-52.0) % MCV 91.2 (80.0-98.0) fL MCH 31.6 (27.0-33.0) pg MCHC 34.6 (31.0-36.0) g/dl RDW 12.8 (11.0-16.0) % Plt Count 267 (160-400) X10*3/uL MPV 9.1 L (9.4-12.4) fL Immature Gran % (Auto) 0.2 (0.0-0.4) % Neut % (Auto) 58.6 (45-73) % Lymph % (Auto) 28.9 (20-40) % Laurens % (Auto) 5.5 (2-11) % Eos % (Auto) 5.1 H (0-4) % Baso % (Auto) 1.7 (0-2) % Lymph # (Auto) 2.7 (1.2-4.9) X10*3/uL [place] # (Auto) 0.5 (0.1-1.2) X10*3/uL Eos # (Auto) 0.5 H (0.0-0.4) X10*3/uL Baso # (Auto) 0.2 (0.0-0.2) X10*3/uL Abs Immat Gran (auto) 0.02 (0.00-0.03) X10*3/uL Absolute Neuts (auto) 5.4 (2.0-8.3) x10*3/uL Absolute Nucleated RBC 0.000 (0.0-0.012) X10*3/uL Nucleated RBC % (auto) 0.0 (0.0-0.2) /100WBC Sodium 146 H (135-145) mmol/L Potassium 4.1 (3.3-5.1) mmol/L Chloride 109 H (96-108) mmol/L Carbon Dioxide 27 (22-29) mmol/L Anion Gap 14 (12-20) BUN 12 (9-16) mg/dL Creatinine 0.87 (0.5-1.4) mg/dL Estim Creat Clear Calc 101.8 Estimated GFR > 60 Random Glucose 95 (60-115) mg/dL Calcium 8.6 (8.4-10.2) mg/dL Magnesium 2.3 (1.6-2.6) mg/dL Total Bilirubin 0.5 (0.0-1.0) mg/dL AST 17 (5-37) U/L ALT 30 (0-40) U/L Alkaline Phosphatase 47 (39-117) U/L Total Protein 6.5 (6.5-8.0) g/dL Albumin 4.0 (3.5-5.0) g/dL Ethyl Alcohol < 10 mg/dL Independent Interpretation I performed an independent interpretation of an: CT Scan (Patient refused multiple times he is alert and oriented x4.) Independent Historian Clinical information obtained from an independent historian. History obtained from or confirmed by: EMS and Other (Police) External Record Review External record reviewed: Office record and Outpatient record Tests considered The following testing was considered but not selected: Ordered CT head due to ambiguity of symptoms, patient refusing. No signs of trauma on exam however. Chronic Conditions Patient?s care impacted by: Other (Substance abuse) Social Determinants Patient?s care significantly limited by Social Determinants of Health including: Other Social Determinant of Health Critical Care Time Critical Care Time Critical Care Time: No Discharge Plan Discharge Clinical Impression: Agitation, Substance abuse Patient Disposition: Home, Self-Care Instructions: Depression (ED), Polysubstance Abuse (ED) Additional Instructions: Take your medications as prescribed. If you were prescribed antibiotics today, it is important that you take your medication to their entirety, do not skip any doses, do not finish them early. Follow-up with your primary care provider this week. Return to the emergency department with new or worsening symptoms. Such as fevers, chills, chest pain, shortness of breath, nausea, vomiting, dizziness, headache, vision changes, lethargy In case of emergency call 911 Interventions: [place]-Suicide Risk Severity Scale Last Done: 08/12/24 10:59 Print Language: Azeri
--- NOTE | 2024-08-12 12:06 | PC.NURSE ---
Pt sleeping at this time, 1:1 sitter
--- NOTE | 2024-08-12 13:46 | PC.NURSE ---
recovery speaking to pt
[2024-08-12] MEDS: Naloxone HCl Nasal TAKE HOME 4 MG SPRAY 8 MG NOSTRILALT (13:49)
[2024-08-12 13:53] VITALS: BP 108/49; PULSE 80; RESP 18; TEMP 36.4; O2SAT 100
--- NOTE | 2024-08-12 13:53 | HO.SUDE ---
Met with patient in ED22H where we was found to be restless, asking to leave, reporting I don't have a problem , and refusing to meet with this nurse for a SUDE. Pt demanding that he is discharged elisabeth. Briefly discussed hospital resources however pt was not accepting of supports.
== END 2024-08-12 13:56 | disposition home or self-care (01) ==
PROVIDERS: Physician Assistant; Emergency Provider Emergency Medicine
DX: R45.1 Restlessness and agitation (principal); F19.10 Other psychoactive substance abuse, uncomplicated
CPT/HCPCS: 36415; 80053; 80307; 83735; 85025; 99284; 99285

== ENCOUNTER 2024-08-12 15:00 | Emergency (ER) | payer OTHER, SELFPAY ==
[2024-08-12] VITALS (10 sets, daily range): BP systolic 90–139; BP diastolic 49–78; PULSE 57–100; RESP 12–18; TEMP 36.8–37.2; O2SAT 95–100; BMI 23.3
--- NOTE | 2024-08-12 15:13 | ED.OVERDOSE ---
HPI - Overdose General Chief Complaint: Overdose Stated Complaint: OVERDOSE Time Seen by Provider: 08/12/24 15:12 Source: patient and EMS Mode of arrival: EMS Limitations: no limitations History of Present Illness ED Provider: BERTIN Alcantara HPI Narrative: This is a 39-year-old male presents for the 2nd time today for suspected overdose, he was found unresponsive on the side of the road, he was given 2 , 4 mg intranasal Narcan with good effect. Patient awoke and was very agitated. Combative. He continues to deny drug abuse. He states he left here and went to his friend's house to eat. Denies suicidal and homicidal ideation. Denies medical complaints. Related Data Allergies Allergy/AdvReac Type Severity Reaction Status Date / Time No Known Allergies Allergy Verified 08/12/24 15:07 Review of Systems Review of Systems: Yes all other systems are reviewed and are negative PMFSH Past Medical History Attestation statement: The following information was validated with the patient. Source: old records reviewed and nursing notes reviewed Social History Social History Substance Use Type: Heroin Physical Exam Vital Signs: Vital Signs: Last Vital Signs Temp 98.6 F 08/12/24 15:05 Pulse 89 08/12/24 15:05 Resp 16 08/12/24 15:05 BP 137/67 08/12/24 15:05 Pulse Ox 96 08/12/24 15:05 O2 Del Method Room Air 08/12/24 15:05 BMI result Body Mass Index 23.3 vss Appearance: Alert.? Oriented X3.? No acute distress.? Head: Normocephalic, atraumatic, no step-offs or deformities Eyes: Pupils equal, round and reactive to light.? Neck: Normal inspection.? Neck supple.? CVS: Normal heart rate and rhythm.? Pulses normal.? Respiratory: No respiratory distress.? Breath sounds normal.? Abdomen: Soft and nontender.? Skin: Skin warm and dry.? Normal skin color.? Normal skin turgor.? Extremities: No lower extremity edema.? No calf ttp. 5/5 strength to bilateral upper and lower extremities Neuro: Oriented X 3.? No motor deficit.? No sensory deficit. CN 2-12 intact Course Reevaluation(s) Reevaluation #1: Patient cooperative. Will continue with medical restraints in observation. Time: 15:25 Medications Administered Discontinued Medications Generic Name Dose Route Start Last Admin Trade Name Tristan PRN Reason Stop Dose Admin Diphenhydramine HCl 50 mg 08/12/24 15:10 08/12/24 15:18 Diphenhydramine Hcl 50 Mg/Ml Vial IM 08/12/24 15:11 50 mg ONCE ONE Administration Haloperidol Lactate 5 mg 08/12/24 15:10 08/12/24 15:18 Haloperidol Lactate 5 Mg/Ml Vial IM 08/12/24 15:11 5 mg ONCE ONE Administration Lorazepam 2 mg 08/12/24 15:10 08/12/24 15:18 Lorazepam 2 Mg/Ml Vial IM 08/12/24 15:11 2 mg STAT STA Administration Medical Decision Making Medical Decision Making [facility] Narrative: 1520 39 yo patient returns after being found unresponsive in the road given to 4 mg intranasal Narcan that were found on patient's person. He denies drug use however this time when patient was getting changed over there was a moderate amount of paraphernalia found, security found heroin in patient's belongings. Physical exam patient agitated. Combative. Getting in staff members faces, yelling, screaming, hitting things. History and physical exam concerning for opiate overdose. No signs of trauma. For patient's safety and safety of those around him ordered medical restraints Differential Diagnosis Differential Diagnoses: The differential diagnosis associated with the presentation includes (History and physical exam concerning for opiate overdose. No signs of trauma.) Admission/Observation Consideration of admission/observation: Escalation of care including admission/observation considered (possible ) Independent Interpretation I performed an independent interpretation of an: CT Scan (ordered patient refusing ) Chronic Conditions Patient?s care impacted by: Other (Substance use disorder) Critical Care Time Critical Care Time Critical Care Time: Yes Total Critical Care Time: 35 Attestation: I attest to this time spent taking care of the patient, obtaining history, physical, reviewing labs, imaging, treatment of patients condition +/- specialist/hospitalist consult Discharge Plan Discharge Clinical Impression: Substance abuse, Drug overdose Patient Disposition: Still a Patient Print Language: Mohawk
[2024-08-12] MEDS: diphenhydrAMINE HCL 50 MG/ML VIAL IM (15:18)
[2024-08-12] MEDS: Haloperidol Lactate 5 MG/ML VIAL IM (15:18)
[2024-08-12] MEDS: LORazepam 2 MG/ML VIAL IM (15:18)
--- NOTE | 2024-08-12 17:02 | PC.NURSE ---
Late entry: pt arrived by EMS, 8mg of narcan given due to unresponsive outside. Pt angry, yelling and threatening. Pt agreed to get IM medicine to calm down. Security changed pt over into safety clothing, stuff is in decon. Medicated per MAR for agitated and aggressive behaviors. Denied any SI or HI. After approx 10-15 mins, pt sleeping and more calm but would have intermittent outbursts of anger when trying to assess vitals. 1:1 sitter at bedside monitoring pt. Breathing even and unlabored.
[2024-08-13] VITALS: BP 96/54; PULSE 50; RESP 16; O2SAT 93
[2024-08-13 02:20] VITALS: BP 88/45; PULSE 64; RESP 18; TEMP 36.6; O2SAT 95
[2024-08-13 02:47] VITALS: BP 90/49
--- NOTE | 2024-08-13 02:49 | PC.NURSE ---
MD made aware of blood pressures
[2024-08-13 04:00] VITALS: BP 102/58; PULSE 72; RESP 20; O2SAT 93
--- NOTE | 2024-08-13 04:37 | ED.EXTPRO ---
HPI - Extremity Problem General Chief complaint: Overdose Stated complaint: OVERDOSE Time Seen by Provider: 08/12/24 15:12 Source: patient and EMS Mode of arrival: EMS Limitations: no limitations History of Present Illness ED Provider: morris GOMEZ Narrative: No significant history of arthritis/gout had left shoulder surgery 2 days Related Data Allergies Allergy/AdvReac Type Severity Reaction Status Date / Time No Known Allergies Allergy Verified 08/12/24 15:07 PMFSH Social History Social History Smoked in Last 30 Days: No Use of substances other than those prescribed or required for medical reasons: Yes Substance Use Type: Heroin Advance Directives: No Advance Directives Information Provided: No Physical Exam Vital Signs: Vital Signs: Last Vital Signs Temp 97.8 F 08/13/24 02:20 Pulse 72 08/13/24 04:00 Resp 20 08/13/24 04:00 BP 102/58 L 08/13/24 04:00 Pulse Ox 93 08/13/24 04:00 O2 Del Method Room Air 08/13/24 04:00 BMI result Body Mass Index 23.3 Medications Administered Discontinued Medications Generic Name Dose Route Start Last Admin Trade Name Freq PRN Reason Stop Dose Admin Diphenhydramine HCl 50 mg 08/12/24 15:10 08/12/24 15:18 Diphenhydramine Hcl 50 Mg/Ml Vial IM 08/12/24 15:11 50 mg ONCE ONE Administration Haloperidol Lactate 5 mg 08/12/24 15:10 08/12/24 15:18 Haloperidol Lactate 5 Mg/Ml Vial IM 08/12/24 15:11 5 mg ONCE ONE Administration Lorazepam 2 mg 08/12/24 15:10 08/12/24 15:18 Lorazepam 2 Mg/Ml Vial IM 08/12/24 15:11 2 mg STAT STA Administration Discharge Plan Discharge Clinical Impression: Substance abuse, Drug overdose Patient Disposition: Still a Patient Print Language: Paraguayan
--- NOTE | 2024-08-13 04:47 | PC.NURSE ---
patient refused narcan take home kit
[2024-08-13 04:50] VITALS: BP 102/58; PULSE 72; RESP 20; TEMP 36.6; O2SAT 93
== END 2024-08-13 04:50 | disposition home or self-care (01) ==
PROVIDERS: Emergency Provider Emergency Medicine
DX: R45.1 Restlessness and agitation (principal); T40.1X1A Poisoning by heroin, accidental (unintentional), initial encounter; R40.4 Transient alteration of awareness; Y92.414 Local residential or business street as the place of occurrence of the external cause; F19.10 Other psychoactive substance abuse, uncomplicated
CPT/HCPCS: 96372; 99285; J1200; J1630; J2060

== ENCOUNTER 2024-08-25 16:47 | Emergency (ER) | payer OTHER, SELFPAY ==
--- NOTE | 2024-08-25 16:53 | ED.GENADULT ---
HPI - General Adult General Chief complaint: ETOH/Substance Use Stated complaint: OVERDOSE Time Seen by Provider: 08/25/24 16:53 Source: patient and EMS Mode of arrival: EMS Limitations: other ( agitation) History of Present Illness HPI narrative: 39-year-old male presents via EMS who reports that the patient was found sleeping at a bus stop. Police administered nasal Narcan and the patient became more alert and agitated. Patient on arrival has no physical complaints. Adamantly denies any illicit drug use. Patient states that he drank alcohol earlier but will not quantify as to how much. Patient continuously reports that he is trying to get to his uncle's house who lives in [place]. He is refusing any medical attention at this time. He denies any suicidal or homicidal ideation. Related Data Allergies Allergy/AdvReac Type Severity Reaction Status Date / Time No Known Allergies Allergy Verified 08/25/24 16:57 Review of Systems Review of Systems: ROS is limited due to patient cooperation. He denies any pain. Constitutional: Constitutional: Denies body ache(s) Cardiovascular: Cardiovascular: Denies chest pain and Denies dyspnea Respiratory: Respiratory: Denies cough and Denies dyspnea Psychiatric: Psychiatric: Denies anxiety, Denies change in appetite and Denies depression [facility] Past Medical History Attestation statement: The following information was validated with the patient. [facility] Narrative: Alcohol use Social History Social History Substance Use Type: Heroin Advance Directives: No Advance Directives Information Provided: No Physical Exam ED Vital Signs: Vital Signs - 24 hr 08/25/24 16:54 08/25/24 17:05 Temperature 97.7 F 97.7 F Pulse Rate 96 96 Respiratory Rate 18 18 Blood Pressure 118/66 118/66 Pulse Oximetry 96 96 Oxygen Delivery Method Room Air Room Air BMI result Body Mass Index 23.6 patient is awake and alert. He is boisterous and agitated. Const General: alert, awake and Physically active Eyes Other: Pupils are equal round and reactive to light. No constriction. Resp Other: Lung sounds are clear throughout Cardio Rate: regular rate Rhythm: regular rhythm GI Other: abdomen is soft and nontender. Skin Other: Limited view of skin due to patient cooperation. No obvious trauma. General skin exam: no jaundice Medical Decision Making Medical Decision Making MDM Narrative: 39-year-old male presents via EMS, adamantly denies any illicit drug use. Patient does admit to alcohol use. He did receive Narcan. Patient was observed with security while in the emergency department. He has remained awake and alert. He is repeatedly asking to be discharged so we can make the bus. He is able to maintain his airway and has been ambulatory in the emergency department. He is refusing any detox services or any further treatment while in the emergency department. Security has had to redirect him multiple times. Patient is refusing any take home Narcan which he reports having received in the past. After review of patient's previous medical records he has been to the emergency department for similar episodes. He has had positive urine tox screens in the past which included fentanyl, benzodiazepines cocaine as well as opiates. Patient once again is refusing any use of this and he is refusing any lab work or urinalysis. Patient has been ambulatory in the emergency department and will be discharged home. He has been observed for approximately 1 hour and is refusing to stay any longer. He has not had any signs of airway compromise, sleepiness during this time. Security at the bedside and observed the patient. Differential Diagnosis Differential Diagnoses: The differential diagnosis associated with the presentation includes Alcohol use Agitation Opioid use Dehydration Social Determinants Patient?s care significantly limited by Social Determinants of Health including: Inadequate housing, Alcoholism and drug addiction in family, Unemployment and Other Social Determinant of Health Discharge Plan Discharge Clinical Impression: Agitation Patient Disposition: Home, Self-Care Instructions: Abuse of Alcohol (ED), Opioid Use Disorder (ED) Additional Instructions: Avoid excessive alcohol use. Avoid all drug use. Follow-up with your primary care provider. Call this week to schedule a follow-up appointment. Return to the emergency department if you have any worsening of symptoms, or any concerns. Get well soon! Interventions: ED Discharge Assessment Last Done: 08/25/24 17:05 Discharge Date/Time: 08/25/24 17:36 Print Language: Taiwanese
[2024-08-25 16:54] VITALS: BP 118/66; PULSE 96; RESP 18; TEMP 36.5; O2SAT 96; BMI 23.6
[2024-08-25 17:05] VITALS: BP 118/66; PULSE 96; RESP 18; TEMP 36.5; O2SAT 96
== END 2024-08-25 17:36 | disposition home or self-care (01) ==
PROVIDERS: Emergency Provider Internal Medicine
DX: R45.1 Restlessness and agitation (principal); F19.90 Other psychoactive substance use, unspecified, uncomplicated
CPT/HCPCS: 99282

== ENCOUNTER 2024-11-20 20:03 | Inpatient (IN) | payer OTHER, SELFPAY ==
[2024-11-20] VITALS (12 sets, daily range): BP systolic 79–114; BP diastolic 45–70; PULSE 87–113; RESP 14–22; TEMP 35.7–36.8; O2SAT 91–95; BMI 22.5
--- NOTE | ~2024-11-20 | XR_ITS ---
CLINICAL HISTORY: cough 1 view chest x-ray Comparison: Chest CT from 07/20/2024 Findings: New airspace disease concerning for pneumonia, particularly laterally in the right upper lobe. No pneumothorax or pleural effusion in this portable image. Cardiac silhouette and mediastinal contours within normal limits for AP technique. Degenerative changes include partially imaged right AC joint. IMPRESSION: New pulmonary opacities concerning for pneumonia. Recommend attention on follow-up to ensure resolution. This document has been electronically signed by: Gagan Leon MD on 11/20/2024 21:49:50
--- NOTE | 2024-11-20 20:15 | ED_ITS ---
HPI - Overdose General Chief Complaint: Overdose Stated Complaint: found unresponsive, given 8mg narcan Time Seen by Provider: 11/20/24 20:04 Source: patient and EMS Mode of arrival: EMS Limitations: no limitations and other History of Present Illness ED Provider: Dr. Nena Braun HPI Narrative: Patient comes to the emergency room via ambulance. Patient hand overdose, was found by 1 of his friends out in the street. Patient received bystander intranasal Narcan 8 mg. When EMS arrived, patient was awake and alert. A bit combative, yelling but still following directions. Related Data Allergies Allergy/AdvReac Type Severity Reaction Status Date / Time No Known Allergies Allergy Verified 11/20/24 20:40 Review of Systems 2 Review of Systems: Yes Other (Waking up from Narcan) [facility] Past Medical History Medical History Polysubstance abuse Overdose Social History Social History Substance Use Type: Heroin Advance Directives: No Advance Directives Information Provided: No Do you have a plan to hurt others: No Plan Physical Exam 2 Vital Signs: Vital Signs: Last Vital Signs Temp 98.2 F 11/20/24 23:26 Pulse 87 11/20/24 23:26 Resp 16 11/20/24 23:26 BP 88/49 L 11/20/24 23:26 Pulse Ox 94 11/20/24 23:26 O2 Del Method Nasal Cannula 11/20/24 23:26 O2 Flow Rate 2 11/20/24 23:26 BMI result Body Mass Index 22.5 Const: Other: Appearance: Alert. Yelling, not answering any questions but following directions, trying to be cooperative Eyes: Pupils equal, round and reactive to light. ENT: Pharynx normal. Neck: Normal inspection. Neck supple. No lymph nodes noted. No crepitus CVS: Normal heart rate and rhythm. Pulses normal. Normal S1 and S2 Respiratory: No respiratory distress. Breath sounds normal. No Wheezing. No rales Abdomen: Soft and nontender. No rigidity. No distention. Skin: Skin warm and dry. Normal skin color. Normal skin turgor. Extremities: No lower extremity edema. No Lacerations. No Rash Neuro: Oriented X 3. No motor deficit. No sensory deficit. Moving all extremities. No slurred speech. CN 2 through 12 grossly intact Psych: Agitated, cooperative Course Course Course Narrative: Patient is closer soak and went, found in the snow. Patient was undressed and warmed up with blankets. Rectal temperature 96 degrees F Patient has no signs of any injury. Once patient wakes up, we will like says for SI HI and drug abuse treatment Blood work has been ordered. However, patient is known to refuse labs and leave against medical advice Medications Administered Generic Name Dose Route Start Last Admin Trade Name Freq PRN Reason Stop Dose Admin Lactated Ringer's 1,564.89 mls @ 1,564.89 mls/hr 11/20/24 23:12 11/20/24 23:29 Lr 30 ml/kg infuse over 1 hr (1564.89 ml) 11/21/24 00:11 1,564.89 mls/hr IV Administration .Q1H ONE Discontinued Medications Generic Name Dose Route Start Last Admin Trade Name Freq PRN Reason Stop Dose Admin Ceftriaxone Sodium 1 gm 11/20/24 22:34 11/20/24 23:29 Ceftriaxone Sodium 1 Gm Vial IVPUSH 11/20/24 22:35 1 gm ONCE ONE Administration Sodium Chloride 1,000 mls @ 999 mls/hr 11/20/24 20:52 11/20/24 21:51 Ns IVCONT 11/20/24 21:52 Infused .Q1H1M ONE Infusion Sodium Chloride 1,000 mls @ 999 mls/hr 11/20/24 21:15 11/20/24 22:50 Ns IVCONT 11/20/24 22:15 Infused .Q1H1M ONE Infusion Azithromycin 500 mg/ Sodium 250 mls @ 125 mls/hr 11/20/24 22:34 11/20/24 23:30 Chloride IV 11/21/24 00:33 125 mls/hr ONCE ONE Administration Medical Decision Making Medical Decision Making [facility] Narrative: On arrival, patient's blood pressure in the high 80s/low 90s, likely secondary to narcotic use. Patient was given IV fluids 1 L. All of patient's labs pending My interpretation of labs: Patient's white blood cell count 29.1, 21% bands, creatinine 1.54. Patient is too intoxicated/under the influence of drugs to give any history. It is possible the patient may have aspirated? Patient was given a total of 2 L normal saline, ceftriaxone, azithromycin The x-ray shows new pulmonary opacities concerning for pneumonia Patient's oxygen saturation sometimes dropped to the high 80s, likely secondary due to pneumonia and heroin overdose Patient wakes up to name. But falls back asleep immediately. Patient is still under the influence of drugs. From previous urine toxicology labs, patient tested positive for opiates, fentanyl, benzodiazepine and cocaine. Urinalysis for today pending. ETOH level negative, serology negative for influenza RSV and COVID Differential Diagnosis Differential Diagnoses: The differential diagnosis associated with the presentation includes (Heroin overdose, polysubstance abuse, aspiration pneumonia) Admission/Observation Consideration of admission/observation: Escalation of care including admission/observation considered Consult Healthcare Provider Management of the patient was discussed with: Hospitalist Lab Data [facility] Lab Attestation statement: I reviewed the patient's lab results. 11/20/24 20:32 11/20/24 20:32 Labs: Lab Results 11/20/24 11/20/24 11/20/24 Range/Units 20:32 21:23 23:04 WBC 29.1 H (4.8-10.8) X10*3/uL RBC 4.49 L (4.60-5.80) X10*6/uL Hgb 13.9 L (14.0-18.0) g/dl Hct 42.8 (42.0-52.0) % MCV 95.3 (80.0-98.0) fL MCH 31.0 (27.0-33.0) pg MCHC 32.5 (31.0-36.0) g/dl RDW 13.0 (11.0-16.0) % Plt Count 271 (160-400) X10*3/uL MPV 9.6 (9.4-12.4) fL Immature Gran % (Auto) Cancelled Neut % (Auto) Cancelled Lymph % (Auto) Cancelled [place] % (Auto) Cancelled Eos % (Auto) Cancelled Baso % (Auto) Cancelled Lymph # (Auto) Cancelled [place] # (Auto) Cancelled Eos # (Auto) Cancelled Baso # (Auto) Cancelled Abs Immat Gran (auto) Cancelled Absolute Neuts (auto) Cancelled Absolute Nucleated RBC 0.000 (0.0-0.012) X10*3/uL Nucleated RBC % (auto) 0.0 (0.0-0.2) /100WBC Neutrophils % (Manual) 66 (45-73) % Band Neutrophils % 21 H (3-5) % Lymphocytes % (Manual) 11 L (20-40) % Monocytes % (Manual) 1 L (2-11) % Metamyelocytes % 1 % Abs Neuts (Manual) 25.3 H (2.0-8.3) X10*3/uL Lymphocytes # (Manual) 3.2 (1.2-4.9) X10*3/uL Monocytes # (Manual) 0.3 (0.1-1.2) X10*3/uL Metamyelocytes # 0.3 X10*3/uL Toxic Vacuolation PRESENT Platelet Estimate NORMAL (NORMAL) Large Platelets PRESENT Plt Morphology Comment NOTED RBC Morphology NORMAL Smear Tech's Comments MANUAL DIFF Sodium 143 (135-145) mmol/L Potassium 4.6 (3.3-5.1) mmol/L Chloride 108 (96-108) mmol/L Carbon Dioxide 18 L (22-29) mmol/L Anion Gap 22 H (12-20) BUN 19 H (9-16) mg/dL Creatinine 1.54 H (0.5-1.4) mg/dL Estim Creat Clear Calc 45.0 Estimated GFR 50 Random Glucose 65 (60-115) mg/dL Lactic Acid 0.8 (0.5-2.0) mmol/L Calcium 8.4 (8.4-10.2) mg/dL Total Bilirubin 0.8 (0.0-1.0) mg/dL Direct Bilirubin 0.2 (0.0-0.5) mg/dL AST 54 H (5-37) U/L ALT 53 H (0-40) U/L Alkaline Phosphatase 76 (39-117) U/L Total Protein 7.0 (6.5-8.0) g/dL Albumin 3.9 (3.5-5.0) g/dL Ethyl Alcohol < 10 mg/dL Influenza Type A (PCR) NEGATIVE (Negative) Influenza Type B (PCR) NEGATIVE (Negative) RSV RNA Qual (PCR) NEGATIVE (Negative) SARS-CoV-2 RNA (RT-PCR) NEGATIVE (Negative) Independent Interpretation I performed an independent interpretation of an: Plain X-Ray Radiology Impression Discussion of test interpretation with radiology: I have reviewed the radiologist's reading. Radiologist Impression: New airspace disease concerning for pneumonia, particularly laterally in the right upper lobe. No pneumothorax or pleural effusion in this portable image. Cardiac silhouette and mediastinal contours within normal limits for AP technique. Degenerative changes include partially imaged right AC joint. IMPRESSION: New pulmonary opacities concerning for pneumonia. Recommend attention on follow-up to ensure resolution. Independent Historian Clinical information obtained from an independent historian. History obtained from or confirmed by: EMS Critical Care Time Critical Care Time Critical Care Time: Yes Total Critical Care Time: 60 Attestation: I have personally provided critical care time. Time includes review of lab data, radiology results, discussion with consultants, and monitoring for potential decompensation. Intervention performed as documented. Discharge Plan Discharge Clinical Impression: Overdose, Pneumonia, HARRY (acute kidney injury) Patient Disposition: Admitted As Inpatient Print Language: Georgian
[2024-11-20] MEDS: 0.9 % Sodium Chloride 1,000 ML 999 ML IVCONT ×2 (20:33→21:26)
--- NOTE | 2024-11-20 20:33 | PC.NURSE ---
Pt hypotensive. Dr. Braun made aware. Verbal order for Nacl fluid bolus. #20PIV initiated, blood collected and sent to lab. Fluid bolus initiated.
--- NOTE | 2024-11-20 20:35 | MHC.EDTECH ---
Addendum entered by Yessy Ahmadi 11/20/24 20:58: Capnography placed Original Note: Patient BIBA,changed into hospital attire,placed on the vehicle monitor technician,vitals taken, BP is low at this time 93/48,fire extinguisher charger aware, security at bedside,belongings list completed, patient has a black book bag and 4 pt belongings bags,all belongings locked in the [place] shelf # 1,
[2024-11-20 20:44] LABS: Hematocrit 42.8 % (42.0-52.0); Hemoglobin 13.9 g/dl (14.0-18.0); Mean Corpuscular HGB Conc 32.5 g/dl (31.0-36.0); Mean Corpuscular Volume 95.3 fL (80.0-98.0); Mean Platelet Volume 9.6 fL (9.4-12.4); Platelet Count 271 X10*3/uL (160-400); Red Blood Count 4.49 X10*6/uL (4.60-5.80); White Blood Count 29.1 X10*3/uL (4.8-10.8)
[2024-11-20 21:00] LABS: Alanine Aminotransferase 53 U/L (0-40); Albumin Level 3.9 g/dL (3.5-5.0); Alkaline Phosphatase 76 U/L (39-117); Anion Gap 22 (12-20); Aspartate Amino Transferase 54 U/L (5-37); Bilirubin Direct 0.2 mg/dL (0.0-0.5); Bilirubin Total 0.8 mg/dL (0.0-1.0); Blood Urea Nitrogen 19 mg/dL (9-16); Calcium 8.4 mg/dL (8.4-10.2); Carbon Dioxide 18 mmol/L (22-29); Chloride 108 mmol/L (96-108); Estimated Glomerular Filt Rate 50; Ethanol < 10 mg/dL; Glucose Random 65 mg/dL (60-115); Potassium 4.6 mmol/L (3.3-5.1); Sodium 143 mmol/L (135-145)
[2024-11-20 21:07] LABS: SLIDE REVIEW MANUAL DIFF
[2024-11-20 21:11] LABS: Neutrophils Percent Manual 66 % (45-73)
[2024-11-20 21:13] LABS: Band Neutrophils Percent 21 % (3-5); Lymphocytes Absolute Manual 3.2 X10*3/uL (1.2-4.9); Lymphocytes Percent Manual 11 % (20-40); Metamyelocytes Absolute 0.3 X10*3/uL; Metamyelocytes Percent 1 %; Monocytes Absolute Manual 0.3 X10*3/uL (0.1-1.2); Monocytes Percent Manual 1 % (2-11); Neutrophils Absolute Manual 25.3 X10*3/uL (2.0-8.3)
[2024-11-20 21:14] LABS: Large Platelet PRESENT; Platelet Estimate NORMAL (NORMAL); Platelet Morphology Comment NOTED; RBC Morphology NORMAL
[2024-11-20 21:15] LABS: Toxic Vacuolation PRESENT
--- NOTE | 2024-11-20 21:28 | PC.NURSE ---
patient blood pressure 89/50 provider notified
[2024-11-20 22:05] LABS: Influenza A PCR NEGATIVE (Negative); Influenza B PCR NEGATIVE (Negative); Resp Syncy Virus RNA Qual PCR NEGATIVE (Negative); SARS COV2 PCR INHOUSE NEGATIVE (Negative)
--- NOTE | 2024-11-20 22:58 | P.HPHOSP_ITS ---
History of Present Illness Date of Service: 11/20/24 Chief Complaint: Unresponsive This is a 39-year-old male with pertinent history of polysubstance use disorder who was brought to the emergency department for evaluation of altered mentation. Patient was found on the street by 1 of his friends with accidental overdose. 8 mg Narcan was given by bystander with some improvement in mentation. Unable to obtain history from the patient as he is drowsy and not answering questions. He awakens to verbal stimulus but falls back asleep mid conversation. History obtained with the help of ER provider and chart review. Patient was found to be hypoxic in the ER and placed on supplemental oxygen. Also found to have leukocytosis with 21% neutrophilic bands. Imaging with right-sided pneumonia. Patient was given IV crystalloids, IV antibiotics. Labs also revealed HARRY with creatinine 1.54. Unable to obtain review of systems Review of Systems 2 Review of Systems: Yes Unobtainable due to mental status PMFSH Medical History Polysubstance abuse Overdose Pertinent family history: Unable to obtain Social History Substance Use Type: Heroin Advance Directives: No Advance Directives Information Provided: No Do you have a plan to hurt others: No Plan Meds Allergies Allergy/AdvReac Type Severity Reaction Status Date / Time No Known Allergies Allergy Verified 11/20/24 20:40 Active Medications: Current Medications Azithromycin 500 mg/ Sodium (Chloride) 250 mls @ 125 mls/hr IV ONCE ONE Stop: 11/21/24 00:33 Physical Exam 2 Vital Signs and Narrative: Vital Signs: Last Vital Signs Temp 98.0 F 11/20/24 22:00 Pulse 93 11/20/24 22:00 Resp 20 11/20/24 22:00 BP 93/46 L 11/20/24 22:00 Pulse Ox 93 11/20/24 22:00 O2 Del Method Room Air 11/20/24 22:00 O2 Flow Rate 2 11/20/24 21:55 BMI result Body Mass Index 22.5 Middle-aged male lying in bed on supplemental oxygen Neck supple, no JVD Regular rate and rhythm, S1-S2 heard Right-sided crackles heard Abdomen soft nontender, no guarding, no rigidity Patient is sleeping and only awakens to verbal stimulus, falls back asleep before answering questions, non conversational Psych: Lethargic No pedal edema Results Labs 11/20/24 20:32 11/20/24 20:32 Labs: Laboratory Results - last 24 hr 11/20/24 11/20/24 20:32 21:23 MCV 95.3 MCH 31.0 MCHC 32.5 RDW 13.0 Plt Count 271 MPV 9.6 Immature Gran % (Auto) Cancelled Neut % (Auto) Cancelled Lymph % (Auto) Cancelled [place] % (Auto) Cancelled Eos % (Auto) Cancelled Baso % (Auto) Cancelled Lymph # (Auto) Cancelled [place] # (Auto) Cancelled Eos # (Auto) Cancelled Baso # (Auto) Cancelled Abs Immat Gran (auto) Cancelled Absolute Neuts (auto) Cancelled Absolute Nucleated RBC 0.000 Nucleated RBC % (auto) 0.0 Neutrophils % (Manual) 66 Band Neutrophils % 21 H Lymphocytes % (Manual) 11 L Monocytes % (Manual) 1 L Metamyelocytes % 1 Abs Neuts (Manual) 25.3 H Lymphocytes # (Manual) 3.2 Monocytes # (Manual) 0.3 Metamyelocytes # 0.3 Toxic Vacuolation PRESENT Platelet Estimate NORMAL Large Platelets PRESENT Plt Morphology Comment NOTED RBC Morphology NORMAL Smear Tech's Comments MANUAL DIFF Anion Gap 22 H Estim Creat Clear Calc 45.0 Estimated GFR 50 Random Glucose 65 Calcium 8.4 Total Bilirubin 0.8 Direct Bilirubin 0.2 AST 54 H ALT 53 H Alkaline Phosphatase 76 Total Protein 7.0 Albumin 3.9 Ethyl Alcohol < 10 Influenza Type A (PCR) NEGATIVE Influenza Type B (PCR) NEGATIVE RSV RNA Qual (PCR) NEGATIVE SARS-CoV-2 RNA (RT-PCR) NEGATIVE Assessment and Plan (1) Overdose: Status: Acute (2) Toxic encephalopathy: Status: Acute (3) Hypoxia: Status: Acute (4) Aspiration pneumonia: Status: Acute (5) Sepsis: Status: Acute Plan This is a 39-year-old male with pertinent history of polysubstance use disorder who was brought to the emergency department for evaluation of altered mentation. #. Acute toxic encephalopathy due to accidental overdose in a patient with polysubstance use disorder: 8 mg Narcan given by bystander with some improvement in mentation. Will admit patient and monitor mentation. Monitor for withdrawal. Addiction Team consult. UDS pending #. Acute hypoxemic respiratory failure and sepsis due to aspiration pneumonia in the setting of above: Will admit patient with supplemental oxygen. Initiating IV Unasyn. Resuscitated with IV crystalloids. Lactic acid and blood culture obtained #. Acute kidney injury stage I: Monitor with crystalloid resuscitation. Avoid nephrotoxins Med rec pending DVT prophylaxis: Lovenox Full code Admit as inpatient and will require two night minimum hospital stay for supplemental oxygen, IV antibiotics, monitoring of mentation, monitoring of kidney function (as above), which is not possible in a lesser acute setting. Quality Stroke Does the patient have a stroke diagnosis?: No VTE Prior VTE?: No VTE Risk Level:: Medical - moderate - high VTE Device Contraindication: Treatment Not Indicated VTE Drug Contraindication: N/A - Med Ordered
[2024-11-20 23:24] LABS: Lactic Acid 0.8 mmol/L (0.5-2.0)
[2024-11-20] MEDS: Lactated Ringers 1,564.89 ML 1564.89 ML IV (23:29)
[2024-11-20] MEDS: cefTRIAXone sodium 1 GM VIAL IVPUSH (23:29)
[2024-11-20] MEDS: Azithromycin 500 MG in 0.9 % Sodium Chloride 250 ML 125 MG IV (23:30)
[2024-11-21] VITALS (9 sets, daily range): BP systolic 97–138; BP diastolic 50–85; PULSE 62–96; RESP 9–22; TEMP 36.6–37.2; O2SAT 91–100; BMI 22.4
--- NOTE | 2024-11-21 01:32 | PC.NURSE ---
pt awake askin for water order was placed for patient to be NPO and pt started extremely rude screaming swearing at staff, threatening to leave. Per hospitalist if patient can pass swallow eval is able to drink. swallow eval passed and patient given more water patient still extremely rude and demanding to staff
[2024-11-21] MEDS: Ampicillin Sodium/Sulbactam Na 3 GM in 0.9 % Sodium Chloride 100 ML IV ×3 (01:40→11:42)
--- NOTE | 2024-11-21 01:54 | MHC.EDTECH ---
Upon entry to room patient was yelling and demanding water, being rude to staff, patient was allowed water at this time per nurse,patient was given a pitcher of water, Patient urinated 650MLS in urinal, (dark in color) urine sample collected and sent to lab,
[2024-11-21 02:00] LABS: Appearance Urine Clear; Color Urine Yellow; Glucose Urine UA Negative (Negative); Leukocyte Esterase Urine Negative (Negative); Nitrite Urine Negative (Negative); Specific Gravity - Urine 1.025 (1.005-1.025); Urine Blood Negative (Negative); Urine Ketones Trace mg/dL (Negative); Urine Protein Trace mg/dL (Neg-Trace)
[2024-11-21 02:02] LABS: Amphetamine Screen Urine Not Detected (Not Detect); Barbiturates, Urine Not Detected (Not Detect); Benzodiazepines Screen Urine Not Detected (Not Detect); Buprenorphine Scr Not Detected (Not Detect); Cannabinoid Screen Urine Not Detected (Not Detect); Cocaine Screen Urine POSITIVE (Not Detect); Fentanyl, urine POSITIVE (Not Detect); Methadone Screen, Urine Not Detected (Not Detect); Opiate Screen Urine POSITIVE (Not Detect); Oxycodone Screen Urine Not Detected (Not Detect); Phencyclidine Screen Urine Not Detected (Not Detect)
[2024-11-21 05:14] LABS: MANUAL DIFF FLAG NO
[2024-11-21 05:16] LABS: Basophils Absolute Auto 0.1 X10*3/uL (0.0-0.2); Basophils Percent Auto 0.3 % (0-2); Eosinophils Percent Auto 0.1 % (0-4); Hematocrit 35.4 % (42.0-52.0); Hemoglobin 11.8 g/dl (14.0-18.0); Imm Gran Abs Auto 0.11 X10*3/uL (0.00-0.03); Imm Gran Pct Auto 0.6 % (0.0-0.4); Lymphocytes Absolute Auto 1.6 X10*3/uL (1.2-4.9); Lymphocytes Percent Auto 8.2 % (20-40); Mean Corpuscular HGB Conc 33.3 g/dl (31.0-36.0); Mean Corpuscular Hemoglobin 31.1 pg (27.0-33.0); Mean Corpuscular Volume 93.2 fL (80.0-98.0); Mean Platelet Volume 9.8 fL (9.4-12.4); Monocytes Absolute Auto 0.9 X10*3/uL (0.1-1.2); Monocytes Percent Auto 4.8 % (2-11); Neutrophils Absolute Auto 16.7 x10*3/uL (2.0-8.3); Platelet Count 204 X10*3/uL (160-400); Red Cell Distribution Width 13.1 % (11.0-16.0); White Blood Count 19.4 X10*3/uL (4.8-10.8)
[2024-11-21 05:35] LABS: Anion Gap 13 (12-20); Blood Urea Nitrogen 20 mg/dL (9-16); Calcium 7.5 mg/dL (8.4-10.2); Carbon Dioxide 20 mmol/L (22-29); Chloride 111 mmol/L (96-108); Creatinine Clr Calc Pharmacy 86.8; Estimated Glomerular Filt Rate > 60; Glucose Random 79 mg/dL (60-115); Potassium 4.3 mmol/L (3.3-5.1); Sodium 140 mmol/L (135-145)
--- NOTE | 2024-11-21 08:06 | PHA.MEDREC ---
Pharmacy Consult ? Medication Reconciliation Pharmacy has completed the medication reconciliation. Spoke with pt at bedside, pt states he cannot remember if he is on any home meds.
[2024-11-21] MEDS: LORazepam 2 MG/ML VIAL 1 MG IVPUSH ×2 (10:14→13:41)
[2024-11-21] MEDS: Lactated Ringers 1,000 ML 100 ML IVCONT (10:15)
[2024-11-21] MEDS: Nicotine Polacrilex 2 MG GUM BUCCAL (10:54)
--- NOTE | 2024-11-21 11:19 | MHC.SL.SWA ---
Speech Pathologist Impression: WFL Risk of Aspiration Due to: None Dysphasia Diet Status: No Change Liquid Consistency and Strategies for Safe Swallow: Liquid Intake Recommendation: Thin Liquid Intake Strategies: Unrestricted Solid Food Consistency: Dietary Recommendations: Regular Additional Modifications to Solid Foods: Oral and pharyngeal phase of swallow deemed WFL. Recommend continue on unmodified diet, REGULAR solids and THIN liquids, pills WHOLE in LIQUID. Patient is able to feed himself without difficulty and denies experiencing any symptoms or hx of dysphagia. Oral Medication Intake: Whole with Liquid Please contact the pharmacy regarding appropriate crushable or liquid drug formulations that are available whenever modified delivery is recommended. Compensatory Strategies and Precautions to be Taken for Safe Swallow: Sitting Upright (90 deg) Small Bites and Sips Rate of Ingestion Change Supervision While Eating and Drinking for Safe Swallow: None Needed Recommendation for Speech: NA:Typical Evaluation Comment: Please re-refer with any changes or further concern. Paper Twister Tender Clinican/Clinical Fellow: No Supervisory Statement: I have reviewed and agree with the student/clinical fellow's documentation: N/A Speech Language Pathologist: Yeny Jc M.A., CCC-NUT THREADER
--- NOTE | 2024-11-21 11:34 | PC.NURSE ---
Pt medicated per request for anxiety this morning; Nicorette gum provided per request; pt currently cooperative with care; awaiting bed for admission
[2024-11-21] MEDS: hydrOXYzine HCL 25 MG TABLET PO (13:41)
--- NOTE | 2024-11-21 13:56 | PC.NURSE ---
Pt asking to leave AMA, addiction services at bedside to discuss Methadone or Suboxone; pt resistant to staying for admission; SAO2 on RA 91%; pt counseled that he has pneumonia and needs to stay for tx by this RN and Dr Alan
--- NOTE | 2024-11-21 14:00 | MHC.EDTECH ---
Patient refused EKG. RN aware.
--- NOTE | 2024-11-21 14:02 | MHC.RECOVRN ---
Briefly met with pt in ED10 after provider request and pt exhibiting opioid withdrawal symptoms. Pt sitting in bed, awake, alert, engages in conversation, irritable, diaphoretic, and requesting discharge due to desire to use substances. Pt reports 1 bundles heroin/fentanyl daily, [place]. Discussed MOUD, pt initially open to methadone, however, changed his mind and did not want to wait for it. Pt reports he has been on Suboxone and methadone before, reports methadone dose was 110 mg and it didn't work. Pt reports strong cravings at this time and would like to be discharged. RN and provider aware.
--- NOTE | 2024-11-21 14:14 | PC.NURSE ---
Pt refusing EKG, Methadone and is refusing to provide a pharmacy for Dr Alan to call in rx's for antibiotics; IV's removed, pt belongings returned to pt; pt refuses to sign any AMA paperwork
--- NOTE | 2024-11-21 14:32 | MHC.CM.PN ---
PT LEFT AMA
--- NOTE | 2024-11-21 14:43 | P.DS_ITS ---
DS: Providers Provider Date of Service: 11/21/24 Date of admission: 11/21/24 00:17 Date of discharge: 11/21/24 Primary care physician: Unknown Physician Consults: 11/20/24 22:56 Addiction Medicine Routine Consulting Provider: Addiction Covering Reason for consultation: polysubstance use disorder Attending physician on discharge: Camilla Alan Discharging clinician: Camilla Alan DS: Diagnosis Discharge Diagnosis (1) Overdose: Status: Acute (2) Toxic encephalopathy: Status: Acute (3) Hypoxia: Status: Acute (4) Aspiration pneumonia: Status: Acute (5) Sepsis: Status: Acute DS: Summary Hospital Course Hospital Course: Hpi:39-year-old male with pertinent history of polysubstance use disorder who was brought to the emergency department for evaluation of altered mentation. Patient was found on the street by 1 of his friends with accidental overdose. 8 mg Narcan was given by bystander with some improvement in mentation. Unable to obtain history from the patient as he is drowsy and not answering questions. He awakens to verbal stimulus but falls back asleep mid conversation. History obtained with the help of ER provider and chart review. Patient was found to be hypoxic in the ER and placed on supplemental oxygen. Also found to have leukocytosis with 21% neutrophilic bands. Imaging with right-sided pneumonia. Patient was given IV crystalloids, IV antibiotics. Labs also revealed HARRY with creatinine 1.54. Unable to obtain review of systems. Hospital course: Patient was admitted for toxic metabolic encephalopathy secondary to accidental overdose with polysubstance use, in addition patient had acute hypoxemic respiratory failure secondary to pneumonia and sepsis due to above and HARRY: Patient was hydrated, given Narcan, IV antibiotic and blood cultures sent, chest x-ray shows possible pneumonia: With the above management patient mental status seems to be improved, HARRY also resolved, blood cultures pending: But patient leave against medical advice: Above management discussed with the patient detail length that is pneumonia and sepsis can get worse and can become more hypoxic and and even . In addition polysubstance use also discussed in detail and strongly advised to abstain from it, risks of keep using drugs also discussed in detail including . Patient is aox3 -understands and could able to say above back to me. Narcan to take home ordered. In addition patient was explained to go to nearest emergency room for further management of his above-mentioned issues. augmentin 875 mg p.o. b.i.d. for 1 week ordered as well as Narcan take home ordered but he refused . Patient was strongly advised to abstain from polysubstance use. Time Attestation Total time managing care of this patient today: 40 mintues. Discharge Coordination Time (in mins): 40 min Quality: Safe Use of Opioids Does Pt have an Active Cancer Diagnosis on the Problem List?: No Quality: Stroke Does the patient have a stroke diagnosis?: No Physical Exam Vital Signs: Vital Signs: Last Vital Signs Temp 98.9 F 11/21/24 13:58 Pulse 96 11/21/24 13:58 Resp 22 H 11/21/24 13:58 BP 138/85 11/21/24 13:58 Pulse Ox 91 L 11/21/24 13:58 O2 Del Method Room Air 11/21/24 13:58 O2 Flow Rate 2 11/21/24 12:27 BMI result Body Mass Index 22.4 aox3,refused ,leaving ama DS: Data Data Completed and Pending Labs on day of discharge: Laboratory Results - last 24 hr 11/20/24 11/20/24 11/20/24 20:32 21:23 23:04 WBC 29.1 H RBC 4.49 L Hgb 13.9 L Hct 42.8 MCV 95.3 MCH 31.0 MCHC 32.5 RDW 13.0 Plt Count 271 MPV 9.6 Immature Gran % (Auto) Cancelled Neut % (Auto) Cancelled Lymph % (Auto) Cancelled [place] % (Auto) Cancelled Eos % (Auto) Cancelled Baso % (Auto) Cancelled Lymph # (Auto) Cancelled [place] # (Auto) Cancelled Eos # (Auto) Cancelled Baso # (Auto) Cancelled Abs Immat Gran (auto) Cancelled Absolute Neuts (auto) Cancelled Absolute Nucleated RBC 0.000 Nucleated RBC % (auto) 0.0 Neutrophils % (Manual) 66 Band Neutrophils % 21 H Lymphocytes % (Manual) 11 L Monocytes % (Manual) 1 L Metamyelocytes % 1 Abs Neuts (Manual) 25.3 H Lymphocytes # (Manual) 3.2 Monocytes # (Manual) 0.3 Metamyelocytes # 0.3 Toxic Vacuolation PRESENT Platelet Estimate NORMAL Large Platelets PRESENT Plt Morphology Comment NOTED RBC Morphology NORMAL Smear Tech's Comments MANUAL DIFF Sodium 143 Potassium 4.6 Chloride 108 Carbon Dioxide 18 L Anion Gap 22 H BUN 19 H Creatinine 1.54 H Estim Creat Clear Calc 45.0 Estimated GFR 50 Random Glucose 65 Lactic Acid 0.8 Calcium 8.4 Total Bilirubin 0.8 Direct Bilirubin 0.2 AST 54 H ALT 53 H Alkaline Phosphatase 76 Total Protein 7.0 Albumin 3.9 Urine Color Urine Appearance Urine pH Ur Specific [place] Urine Protein Urine Glucose (UA) Urine Ketones Urine Blood Urine Nitrite Ur Leukocyte Esterase Urine Opiates Screen Ur Buprenorphine Scrn Ur Oxycodone Screen Urine Methadone Screen Urine Fentanyl Screen Ur Barbiturates Screen Ur Phencyclidine Scrn Ur Amphetamines Screen U Benzodiazepines Scrn Urine Cocaine Screen U Marijuana (THC) Screen Ethyl Alcohol < 10 Influenza Type A (PCR) NEGATIVE Influenza Type B (PCR) NEGATIVE RSV RNA Qual (PCR) NEGATIVE SARS-CoV-2 RNA (RT-PCR) NEGATIVE 11/21/24 11/21/24 01:38 05:02 WBC 19.4 H RBC 3.80 L Hgb 11.8 L Hct 35.4 L MCV 93.2 MCH 31.1 MCHC 33.3 RDW 13.1 Plt Count 204 MPV 9.8 Immature Gran % (Auto) 0.6 H Neut % (Auto) 86.0 H Lymph % (Auto) 8.2 L [place] % (Auto) 4.8 Eos % (Auto) 0.1 Baso % (Auto) 0.3 Lymph # (Auto) 1.6 [place] # (Auto) 0.9 Eos # (Auto) 0.0 Baso # (Auto) 0.1 Abs Immat Gran (auto) 0.11 H Absolute Neuts (auto) 16.7 H Absolute Nucleated RBC 0.000 Nucleated RBC % (auto) 0.0 Neutrophils % (Manual) Band Neutrophils % Lymphocytes % (Manual) Monocytes % (Manual) Metamyelocytes % Abs Neuts (Manual) Lymphocytes # (Manual) Monocytes # (Manual) Metamyelocytes # Toxic Vacuolation Platelet Estimate Large Platelets Plt Morphology Comment RBC Morphology Smear Tech's Comments Sodium 140 Potassium 4.3 Chloride 111 H Carbon Dioxide 20 L Anion Gap 13 BUN 20 H Creatinine 0.80 Estim Creat Clear Calc 86.8 Estimated GFR > 60 Random Glucose 79 Lactic Acid Calcium 7.5 L D Total Bilirubin Direct Bilirubin AST ALT Alkaline Phosphatase Total Protein Albumin Urine Color Yellow Urine Appearance Clear Urine pH 6.0 Ur Specific [place] 1.025 Urine Protein Trace Urine Glucose (UA) Negative Urine Ketones Trace Urine Blood Negative Urine Nitrite Negative Ur Leukocyte Esterase Negative Urine Opiates Screen POSITIVE H Ur Buprenorphine Scrn Not Detected Ur Oxycodone Screen Not Detected Urine Methadone Screen Not Detected Urine Fentanyl Screen POSITIVE H Ur Barbiturates Screen Not Detected Ur Phencyclidine Scrn Not Detected Ur Amphetamines Screen Not Detected U Benzodiazepines Scrn Not Detected Urine Cocaine Screen POSITIVE H U Marijuana (THC) Screen Not Detected Ethyl Alcohol Influenza Type A (PCR) Influenza Type B (PCR) RSV RNA Qual (PCR) SARS-CoV-2 RNA (RT-PCR) Discharge Plan Discharge Anticipated Discharge Date/Time: 11/21/24 14:17 Patient Disposition: Left Against Medical Advice Discharge Diagnosis: toxic metabolic encephalopathy ,sepsis with aspirational pneumonia,harry. Referrals: Physician,Bebo J [Primary Care Provider] - 1 Week Discharge Medications: New amoxicillin-pot clavulanate 875-125 mg tablet 1 tab PO BID Qty: 14 0RF Discharge Orders: Discharge Order (Routine); Ordered 11/21/24 Ordered By: Camilla Alan Stand Alone Forms: Against Medical Advice Print Language: Romanian Care Plan Goals: Patient was admitted for toxic metabolic encephalopathy secondary to accidental overdose with polysubstance use, in addition patient had acute hypoxemic respiratory failure secondary to pneumonia and sepsis due to above and HARRY: Patient was hydrated, given Narcan, IV antibiotic and blood cultures sent, chest x-ray shows possible pneumonia: With the above management patient mental status seems to be improved, HARRY also resolved, blood cultures pending: But patient leave against medical advice: Above management discussed with the patient detail length that is pneumonia and sepsis can get worse and can become more hypoxic and and even . In addition polysubstance use also discussed in detail and strongly advised to abstain from it, risks of keep using drugs also discussed in detail including . Patient understands and could able to say above back to me. Narcan to take home ordered. In addition patient was explained to go to nearest emergency room for further management of his above-mentioned issues. Health Concerns: as above. Plan of Treatment: augmentin 875 mg p.o. b.i.d. for 1 week ordered as well as Narcan take home ordered but he refused . Patient was strongly advised to abstain from polysubstance use. Assessment: As above. Patient Instructions: Pneumonia (DC)
--- NOTE | 2024-11-21 15:00 | PC.NURSE ---
Pt refused any and all orders per [facility]; pt declined PO antibiotics and left AMA
== END 2024-11-21 19:11 | disposition left against medical advice (07) | DRG 812 ==
LOC: HO.ED 23:01 → HO.EDOVER 11-21 00:19
PROVIDERS: Admitting Provider Student in an Organized Health Care Education/Training Program; Emergency Provider Emergency Medicine; Visit Provider Internal Medicine
DX: T50.901A Poisoning by unspecified drugs, medicaments and biological substances, accidental (unintentional), initial encounter (principal); J96.01 Acute respiratory failure with hypoxia; J69.0 Pneumonitis due to inhalation of food and vomit; G92.8 Other toxic encephalopathy; A41.9 Sepsis, unspecified organism; N17.9 Acute kidney failure, unspecified; F17.210 Nicotine dependence, cigarettes, uncomplicated; F19.90 Other psychoactive substance use, unspecified, uncomplicated; Z20.822 Contact with and (suspected) exposure to COVID-19; Z59.02 Unsheltered homelessness; Z71.6 Tobacco abuse counseling
CPT/HCPCS: 0241U; 36415; 71045; 80048; 80076; 80307; 81003; 83605; 85007; 85025; 85027; 87040; 92610; 99285; J0295; J0456; J0696; J2060; J7120; S9485

== ENCOUNTER → 2024-11-20 20:47 | Outpatient (BNV) | payer OTHER, SELFPAY | PROVIDERS: Emergency Provider Emergency Medicine; Visit Provider Student in an Organized Health Care Education/Training Program | DX: T50.901A Poisoning by unspecified drugs, medicaments and biological substances, accidental (unintentional), initial encounter (principal); G92.9 Unspecified toxic encephalopathy; R09.02 Hypoxemia; J69.0 Pneumonitis due to inhalation of food and vomit; A41.9 Sepsis, unspecified organism | CPT/HCPCS: 99239 ==

== ENCOUNTER → 2024-11-20 21:14 | Outpatient (BNV) | payer OTHER, SELFPAY | PROVIDERS: Emergency Provider Emergency Medicine; Visit Provider Radiology Neuroradiology | DX: R05.9 Cough, unspecified (principal) | CPT/HCPCS: 71045 ==

== ENCOUNTER 2024-12-12 12:02 | Emergency (ER) | payer OTHER, SELFPAY ==
[2024-12-12 12:30] VITALS: BP 111/71; PULSE 51; RESP 16; TEMP 36.2; O2SAT 97; BMI 24.3
[2024-12-12 12:32] VITALS: BP 111/71; PULSE 51; RESP 16; TEMP 36.2; O2SAT 97
--- NOTE | 2024-12-12 12:33 | ED_ITS ---
HPI - Overdose General Chief Complaint: Overdose Stated Complaint: side of road by PD, pinpoint pupils, agitated Time Seen by Provider: 12/12/24 12:25 History of Present Illness HPI Narrative: Patient is a 39-year-old male found on the side of the road by she could be police. Was found less responsive. Sent in for further evaluation. Patient had no difficulty breathing. Answers questions when stimulated. Unable to give details. Related Data Previous Rx's ?Medication ?Instructions ?Recorded amoxicillin 875 mg-potassium 1 tab PO BID #14 tabs 11/21/24 clavulanate 125 mg tablet Allergies Allergy/AdvReac Type Severity Reaction Status Date / Time No Known Allergies Allergy Verified 12/12/24 12:31 Review of Systems Review of Systems: Refused to answer specific review of systems [facility] Past Medical History Source: unable to obtain Medical History Polysubstance abuse Overdose Social History Social History Housing: Homeless Unable to assess alcohol history related to: Unknown and Refusing to respond Alcohol intake: current Alcohol intake frequency: 0-2 drinks per day Alcohol type: hard liquor Patient Tobacco Use Status: Current everyday Tobacco user Smoked in Last 30 Days: Yes Use of substances other than those prescribed or required for medical reasons: Unknown Substance Use Type: Heroin Advance Directives: No Advance Directives Information Provided: No Physical Exam Vital Signs: Vital Signs: Last Vital Signs Temp 98.3 F 12/12/24 15:14 Pulse 54 12/12/24 15:14 Resp 16 12/12/24 15:14 BP 111/59 L 12/12/24 15:14 Pulse Ox 98 12/12/24 15:14 O2 Del Method Room Air 12/12/24 15:14 BMI result Body Mass Index 24.3 Appearance: Lethargic not in off but arousable Eyes: Pupils equal, round and reactive to light. ENT: Pharynx normal. Neck: Normal inspection. Neck supple. No lymph nodes noted. No crepitus CVS: Normal heart rate and rhythm. Pulses normal. Normal S1 and S2 Respiratory: No respiratory distress. Breath sounds normal. No Wheezing. No rales Abdomen: Soft and nontender. No rigidity. No distention. good BS x4 Skin: Skin warm and dry. Normal skin color. Normal skin turgor. Extremities: No lower extremity edema. Neurovascular intact to all extremities. No Lacerations. No Rash Neuro: Moving all extremity when prompted Medical Decision Making Medical Decision Making [facility] Narrative: Patient's previous records and labs were reviewed. Has a long history of fentanyl/heroin/cocaine use history. Found on the side of history nodding off. In no respiratory distress. Patient's vital signs showed a normal O2 sat normal blood pressure blood pressure was 111/71 patient's O2 sats 97% patient is not suicidal not homicidal. On appearance patient had a pinpoint pupil but is breathing. Will monitor patient closely. No additional testing at this time. At approximately 16:00 patient woke up is now awake alert ambulatory no acute distress refused detox agitated wanting to leave. Will discharge patient. Explained to patient the need to stop using recreational drugs Differential Diagnosis Differential Diagnoses: The differential diagnosis associated with the presentation includes Opiate overdose cocaine overdose Admission/Observation Consideration of admission/observation: Escalation of care including admission/observation considered Considered for admission the patient does not wake up Lab Data [facility] Lab Attestation statement: I reviewed the patient's lab results. Labs: Lab Results 12/12/24 Range/Units 12:56 POC Glucose 102 (60-115) mg/dL Discharge Plan Discharge Clinical Impression: Accidental overdose of cocaine, Heroin overdose Patient Disposition: Home, Self-Care Instructions: Cocaine Abuse (ED) Prescriptions: No Action amoxicillin-pot clavulanate 875-125 mg tablet 1 tab PO BID Qty: 14 0RF Referrals: Physician,Unknown J [Primary Care Provider] - (Please go to detox.) Print Language: Arabic
[2024-12-12 13:00] LABS: Glucose, Whole Blood 102 mg/dL (60-115)
[2024-12-12 15:14] VITALS: BP 111/59; PULSE 54; RESP 16; TEMP 36.8; O2SAT 98
--- NOTE | 2024-12-12 15:30 | PC.NURSE ---
patient awoken from sleeping to requesting food. Patient provided sandwich and gingerale and cheese stick and patient sit on edge of bed eating sandwich, patient requesting to go home or Ativan.
[2024-12-12 15:52] VITALS: BP 111/59; PULSE 54; RESP 16; TEMP 36.8; O2SAT 98
== END 2024-12-12 15:54 | disposition home or self-care (01) ==
PROVIDERS: Emergency Provider Emergency Medicine Emergency Medical Services
DX: T40.1X1A Poisoning by heroin, accidental (unintentional), initial encounter (principal); T40.5X1A Poisoning by cocaine, accidental (unintentional), initial encounter; R40.4 Transient alteration of awareness; Y92.410 Unspecified street and highway as the place of occurrence of the external cause; F17.210 Nicotine dependence, cigarettes, uncomplicated; Z71.51 Drug abuse counseling and surveillance of drug abuser
CPT/HCPCS: 82947; 99285

== ENCOUNTER 2025-01-01 12:13 | Emergency (ER) | payer OTHER, SELFPAY ==
[2025-01-01] VITALS (8 sets, daily range): BP systolic 90–150; BP diastolic 57–80; PULSE 74–100; RESP 14–23; TEMP 36.4–36.8; O2SAT 97–100; BMI 23.0
--- NOTE | 2025-01-01 12:20 | ED_ITS ---
HPI - General Adult General Chief complaint: ETOH/Substance Use Stated complaint: OD,NARCAN GIVEN BY PD, COMBATIVE PER EMS Time Seen by Provider: 01/01/25 12:19 Source: EMS and police Mode of arrival: EMS Limitations: altered mental status History of Present Illness ED Provider: Dr. Nena Braun HPI narrative: Patient comes to the emergency room via ambulance and with PD on board. According to PD, bystanders found the patient overdose in a public bus. PD was called, 4 mg of intranasal Narcan was administered. Patient woke up. Patient is awake, alert, yelling, does not want to tell us his name. Uncooperative And combative. Related Data Previous Rx's ?Medication ?Instructions ?Recorded amoxicillin 875 mg-potassium 1 tab PO BID #14 tabs 11/21/24 clavulanate 125 mg tablet Allergies Allergy/AdvReac Type Severity Reaction Status Date / Time Unable to Assess Allergy Unverified 01/01/25 12:19 Review of Systems 2 Review of Systems: Yes Unobtainable due to mental status PMFSH Past Medical History Medical History Polysubstance abuse Overdose Social History Social History Housing: Homeless Unable to assess alcohol history related to: Unknown and Refusing to respond Alcohol intake: current Alcohol intake frequency: 0-2 drinks per day Alcohol type: hard liquor Patient Tobacco Use Status: Current everyday Tobacco user Substance Use Type: Heroin Advance Directives: No Advance Directives Information Provided: No Physical Exam ED Vital Signs: Vital Signs - 24 hr 01/01/25 12:29 01/01/25 12:40 01/01/25 12:55 Temperature 98.3 F Pulse Rate 97 97 97 Respiratory Rate 20 17 22 H Blood Pressure 150/80 H 150/80 H 139/65 Pulse Oximetry 97 98 99 Oxygen Delivery Method Room Air Room Air Room Air 01/01/25 13:10 01/01/25 13:25 01/01/25 13:41 Temperature Pulse Rate 99 100 90 Respiratory Rate 20 18 23 H Blood Pressure 90/57 L 133/71 Pulse Oximetry 100 98 98 Oxygen Delivery Method Room Air Room Air Room Air 01/01/25 18:42 Temperature 97.6 F Pulse Rate 74 Respiratory Rate 14 Blood Pressure 122/77 Pulse Oximetry 98 Oxygen Delivery Method Room Air BMI result Body Mass Index 23.0 Const Other: Appearance: Alert. yelling, combative, talking but not providing any valuable information including his name Eyes: Pupils equal, round and reactive to light. ENT: Pharynx normal. Neck: Normal inspection. Neck supple. No lymph nodes noted. No crepitus CVS: Normal heart rate and rhythm. Pulses normal. Normal S1 and S2 Respiratory: No respiratory distress. Breath sounds normal. No Wheezing. No rales Abdomen: Soft and nontender. No rigidity. No distention. Skin: Skin warm and dry. Normal skin color. Normal skin turgor. Extremities: No lower extremity edema. No Lacerations. No Rash Neuro: No motor deficit. No sensory deficit. Moving all extremities. No slurred speech. CN 2 through 12 grossly intact Psych: combative, not making sense Course Course Course Narrative: patient altered, combative, uncooperative. Patient was given 5 mg IM of Haldol, 50 IM Benadryl, 2 IM Ativan patient's labs pending Medications Administered Discontinued Medications Generic Name Dose Route Start Last Admin Trade Name Johnsonq PRN Reason Stop Dose Admin Diphenhydramine HCl 50 mg 01/01/25 12:19 01/01/25 12:39 Diphenhydramine Hcl 50 Mg/Ml Vial IM 01/01/25 12:20 50 mg ONCE ONE Administration Haloperidol Lactate 5 mg 01/01/25 12:19 01/01/25 12:39 Haloperidol Lactate 5 Mg/Ml Vial IM 01/01/25 12:20 5 mg STAT STA Administration Lorazepam 2 mg 01/01/25 12:19 01/01/25 12:38 Lorazepam 2 Mg/Ml Vial IM 01/01/25 12:20 2 mg STAT STA Administration Medical Decision Making Medical Decision Making [facility] Narrative: my interpretation of labs: No significant abnormality in patient's hematology or chemistry. ETOH negative, urinalysis positive for opiates, fentanyl and cocaine patient is still unsteady on his feet walking. Patient does wake up easily but falls right back asleep. Patient's vitals within normal limits, blood pressure 133/71, heart rate 90, respirations 23, temperature 98.3 degrees, oxygen saturation 98% on room air. Patient is under physician observation , waiting for the patient to become more sober, alert and oriented. When more awake, we will ask the patient about SI HI and if he wants help/treatment for addiction. Physician observation started at 15:35 19:00: Patient awake alert, denies SI or HI, declined detox. Patient was provided with information to follow-up with the addiction medicine. Home Narcan was given to the patient Differential Diagnosis Differential Diagnoses: The differential diagnosis associated with the presentation includes ( alcohol intoxication, polysubstance abuse, anxiety depression) Admission/Observation Consideration of admission/observation: Escalation of care including admission/observation considered ( patient is under physician observation) Lab Data MDM Lab Attestation statement: I reviewed the patient's lab results. 01/01/25 12:54 01/01/25 12:54 Labs: Lab Results 01/01/25 01/01/25 Range/Units 12:51 12:54 WBC 7.9 (4.8-10.8) X10*3/uL RBC 4.47 L (4.60-5.80) X10*6/uL Hgb 13.9 L (14.0-18.0) g/dl Hct 40.3 L (42.0-52.0) % MCV 90.2 (80.0-98.0) fL MCH 31.1 (27.0-33.0) pg MCHC 34.5 (31.0-36.0) g/dl RDW 12.7 (11.0-16.0) % Plt Count 242 (160-400) X10*3/uL MPV 9.3 L (9.4-12.4) fL Immature Gran % (Auto) 1.1 H (0.0-0.4) % Neut % (Auto) 66.1 (45-73) % Lymph % (Auto) 24.5 (20-40) % [place] % (Auto) 5.6 (2-11) % Eos % (Auto) 1.4 (0-4) % Baso % (Auto) 1.3 (0-2) % Lymph # (Auto) 1.9 (1.2-4.9) X10*3/uL [place] # (Auto) 0.4 (0.1-1.2) X10*3/uL Eos # (Auto) 0.1 (0.0-0.4) X10*3/uL Baso # (Auto) 0.1 (0.0-0.2) X10*3/uL Abs Immat Gran (auto) 0.09 H (0.00-0.03) X10*3/uL Absolute Neuts (auto) 5.2 (2.0-8.3) x10*3/uL Absolute Nucleated RBC 0.000 (0.0-0.012) X10*3/uL Nucleated RBC % (auto) 0.0 (0.0-0.2) /100WBC Sodium 139 (135-145) mmol/L Potassium 4.1 (3.3-5.1) mmol/L Chloride 108 (96-108) mmol/L Carbon Dioxide 21 L (22-29) mmol/L Anion Gap 14 (12-20) BUN 17 H (9-16) mg/dL Creatinine 0.77 (0.5-1.4) mg/dL Estim Creat Clear Calc 102.6 Estimated GFR > 60 Random Glucose 92 (60-115) mg/dL Calcium 8.9 D (8.4-10.2) mg/dL Total Bilirubin 1.3 H (0.0-1.0) mg/dL Direct Bilirubin 0.3 (0.0-0.5) mg/dL AST 17 (5-37) U/L ALT 14 (0-40) U/L Alkaline Phosphatase 46 (39-117) U/L Total Protein 6.5 (6.5-8.0) g/dL Albumin 4.1 (3.5-5.0) g/dL Urine Opiates Screen POSITIVE H (Not Detect) Ur Buprenorphine Scrn Not Detected (Not Detect) ng/mL Ur Oxycodone Screen Not Detected (Not Detect) ng/mL Urine Methadone Screen Not Detected (Not Detect) ng/mL Urine Fentanyl Screen POSITIVE H (Not Detect) Ur Barbiturates Screen Not Detected (Not Detect) Ur Phencyclidine Scrn Not Detected (Not Detect) Ur Amphetamines Screen Not Detected (Not Detect) U Benzodiazepines Scrn Not Detected (Not Detect) Urine Cocaine Screen POSITIVE H (Not Detect) U Marijuana (THC) Screen Not Detected (Not Detect) Ethyl Alcohol < 10 mg/dL Critical Care Time Critical Care Time Critical Care Time: Yes Total Critical Care Time: 45 Attestation: I have personally provided critical care time. Time includes review of lab data, radiology results, discussion with consultants, and monitoring for potential decompensation. Intervention performed as documented. Discharge Plan Discharge Clinical Impression: Overdose Patient Disposition: Home, Self-Care Instructions: Adult Overdose (ED) Additional Instructions: Overdose You were seen in our Emergency Department for an overdose today. You received narcan in order to reverse the effects of overdose. Narcan only lasts about 45 min to 1 hour in the system. You may have been given narcan to take home with you today, please keep it near you if you are going to use again, so others can use it if needed.? The number one risk for fatal overdose is using alone? [facility] is a 26/04 hotline where you can be on the phone with someone while you use, and they can call for help if they suspect an overdose: [phone] Things to look out for when you leave include severe vomiting or diarrhea, headaches, muscle cramps, fever, coughing, chest pain, or if you feel so short of breath you cannot walk to the bathroom. Please seek care and return any time for worsening symptoms.? You may have been provided with safer injection?items, please take time to take care of YOU and your health. Use new supplies whenever possible to lessen the chances of infections and other illnesses.? If you need more supplies, please go [facility],? [address] [place] [address] OR you can call or text to coordinate delivery of safer supplies. If you decide you want to stop or cut down on how much you?re using, please call the numbers on the list provided to you or you can come to our outpatient Addiction Treatment office [facility] (M-F 9am-5p) [address], [address] [place], [place]. [phone] Prescriptions: No Action amoxicillin-pot clavulanate 875-125 mg tablet 1 tab PO BID Qty: 14 0RF Print Language: Fijian
[2025-01-01] MEDS: LORazepam 2 MG/ML VIAL IM (12:38)
[2025-01-01] MEDS: Haloperidol Lactate 5 MG/ML VIAL IM (12:39)
[2025-01-01] MEDS: diphenhydrAMINE HCL 50 MG/ML VIAL IM (12:39)
--- NOTE | 2025-01-01 12:56 | MHC.EDTECH ---
pt was assisted with bed abreu for a bowel movement and assisted with urinal. Shakira care given. Urine and blood work collected and sent to lab.
[2025-01-01 12:57] LABS: MANUAL DIFF FLAG NO
[2025-01-01 13:02] LABS: Basophils Absolute Auto 0.1 X10*3/uL (0.0-0.2); Basophils Percent Auto 1.3 % (0-2); Eosinophils Absolute Auto 0.1 X10*3/uL (0.0-0.4); Eosinophils Percent Auto 1.4 % (0-4); Hematocrit 40.3 % (42.0-52.0); Hemoglobin 13.9 g/dl (14.0-18.0); Imm Gran Abs Auto 0.09 X10*3/uL (0.00-0.03); Imm Gran Pct Auto 1.1 % (0.0-0.4); Lymphocytes Absolute Auto 1.9 X10*3/uL (1.2-4.9); Lymphocytes Percent Auto 24.5 % (20-40); Mean Corpuscular HGB Conc 34.5 g/dl (31.0-36.0); Mean Corpuscular Hemoglobin 31.1 pg (27.0-33.0); Mean Corpuscular Volume 90.2 fL (80.0-98.0); Mean Platelet Volume 9.3 fL (9.4-12.4); Monocytes Absolute Auto 0.4 X10*3/uL (0.1-1.2); Monocytes Percent Auto 5.6 % (2-11); Neutrophils Absolute Auto 5.2 x10*3/uL (2.0-8.3); Neutrophils Percent Auto 66.1 % (45-73); Platelet Count 242 X10*3/uL (160-400); Red Blood Count 4.47 X10*6/uL (4.60-5.80); Red Cell Distribution Width 12.7 % (11.0-16.0); White Blood Count 7.9 X10*3/uL (4.8-10.8)
[2025-01-01 13:38] LABS: Amphetamine Screen Urine Not Detected (Not Detect); Barbiturates, Urine Not Detected (Not Detect); Benzodiazepines Screen Urine Not Detected (Not Detect); Buprenorphine Scr Not Detected (Not Detect); Cannabinoid Screen Urine Not Detected (Not Detect); Cocaine Screen Urine POSITIVE (Not Detect); Fentanyl, urine POSITIVE (Not Detect); Methadone Screen, Urine Not Detected (Not Detect); Opiate Screen Urine POSITIVE (Not Detect); Oxycodone Screen Urine Not Detected (Not Detect); Phencyclidine Screen Urine Not Detected (Not Detect)
[2025-01-01 13:48] LABS: Alanine Aminotransferase 14 U/L (0-40); Albumin Level 4.1 g/dL (3.5-5.0); Alkaline Phosphatase 46 U/L (39-117); Anion Gap 14 (12-20); Aspartate Amino Transferase 17 U/L (5-37); Bilirubin Direct 0.3 mg/dL (0.0-0.5); Bilirubin Total 1.3 mg/dL (0.0-1.0); Blood Urea Nitrogen 17 mg/dL (9-16); Calcium 8.9 mg/dL (8.4-10.2); Carbon Dioxide 21 mmol/L (22-29); Chloride 108 mmol/L (96-108); Creatinine Clr Calc Pharmacy 102.6; Estimated Glomerular Filt Rate > 60; Ethanol < 10 mg/dL; Glucose Random 92 mg/dL (60-115); Potassium 4.1 mmol/L (3.3-5.1); Sodium 139 mmol/L (135-145); Total Protein 6.5 g/dL (6.5-8.0)
--- NOTE | 2025-01-01 15:08 | MHC.RECOVRN ---
Attempted to meet with pt after pt presented after opioid overdose. Pt laying down, asleep, does not wake to voice. Sitter at bedside reports pt does not make sense when he is awake and seems confused. Will continue to follow.
== END 2025-01-01 19:30 | disposition home or self-care (01) ==
PROVIDERS: Emergency Provider Emergency Medicine
DX: T40.1X1A Poisoning by heroin, accidental (unintentional), initial encounter (principal); Y92.9 Unspecified place or not applicable; R45.6 Violent behavior; F17.210 Nicotine dependence, cigarettes, uncomplicated; Z71.51 Drug abuse counseling and surveillance of drug abuser; Z51.81 Encounter for therapeutic drug level monitoring
CPT/HCPCS: 36415; 80048; 80076; 80307; 85025; 96372; 99283; 99284; J1200; J1630; J2060

== ENCOUNTER 2025-01-03 08:28 | Emergency (ER) | payer OTHER, SELFPAY ==
[2025-01-03 08:40] VITALS: BP 162/94; PULSE 76; O2SAT 98
== END 2025-01-03 09:34 | disposition left against medical advice (07) ==
PROVIDERS: Emergency Provider Emergency Medicine
DX: R46.89 Other symptoms and signs involving appearance and behavior (principal)

== ENCOUNTER 2025-05-01 16:19 | Emergency (ER) | payer OTHER, SELFPAY ==
--- NOTE | 2025-05-01 16:26 | ED.OVERDOSE ---
HPI - Overdose General Chief Complaint: Overdose Stated Complaint: OD, narcan given Time Seen by Provider: 05/01/25 16:25 Source: patient and EMS Mode of arrival: EMS Limitations: no limitations History of Present Illness ED Provider: Luiz Wood PA-C HPI Narrative: 39-year-old male with history of polysubstance abuse, history of multiple overdoses in the past, history of aspiration pneumonia who presents to the ER via EMS after he was found unresponsive, required 8 mg of Narcan. On EMS arrival BVM was used until he became more responsive. He arrives to the ER agitated and yelling. States he does not want to be here. States he was here several times a for and discharge in the middle of the night. He states he has not need to be evaluated that ?I am fine. He is screaming at security to get away from him. complaint: accidental overdose Related Data Previous Rx's ?Medication ?Instructions ?Recorded amoxicillin 875 mg-potassium 1 tab PO BID #14 tabs 11/21/24 clavulanate 125 mg tablet Allergies Allergy/AdvReac Type Severity Reaction Status Date / Time Unable to Assess Allergy Verified 05/01/25 16:33 Review of Systems Review of Systems: Yes Unobtainable due to mental condition (Uncooperative, unwilling to answer interview questions) PMFSH Past Medical History Medical History Polysubstance abuse Overdose Social History Social History Housing: Homeless Unable to assess alcohol history related to: Unknown and Refusing to respond Alcohol intake: current Alcohol intake frequency: 0-2 drinks per day Alcohol type: hard liquor Patient Tobacco Use Status: Current everyday Tobacco user Substance Use Type: Heroin Advance Directives: No Advance Directives Information Provided: No Physical Exam Vital Signs: Vital Signs: Last Vital Signs Temp 99.0 F 05/01/25 16:40 Pulse 80 05/01/25 16:40 Resp 16 05/01/25 16:40 BP 119/59 L 05/01/25 16:40 Pulse Ox 96 05/01/25 16:40 O2 Del Method Room Air 05/01/25 16:40 BMI result Body Mass Index 19.0 Medical Decision Making Medical Decision Making MDM Narrative: 39-year-old male with history of polysubstance use disorder, several overdoses in the past, history of sepsis and pneumonia who presents to the ER for evaluation after he was found unresponsive, given Narcan and then bagged. He arrives to the ER awake, alert, agitated and yelling out. He wants to leave. He eventually changed over into a [place] and was agreeable to vital signs. His vitals are reassuring and normal. He is now lying comfortably on the stretcher and resting. He is breathing adequately and protecting his airway. Will monitor. 17:48 - patient sleeping comfortably w/ adequate RR. will continue to monitor. Differential Diagnosis Differential Diagnoses: The differential diagnosis associated with the presentation includes Intentional overdose, accidental overdose, polysubstance use Independent Historian Clinical information obtained from an independent historian. History obtained from or confirmed by: EMS External Record Review External record reviewed: Outpatient record Prescription Management I considered prescription management with: Other (narcan) Chronic Conditions Patient?s care impacted by: Other (Polysubstance use disorder) Social Determinants Patient?s care significantly limited by Social Determinants of Health including: Inadequate housing and Other Social Determinant of Health Critical Care Time Critical Care Time Critical Care Time: No Discharge Plan Discharge Clinical Impression: Overdose Qualifiers: Encounter type: initial encounter Injury intent: accidental or unintentional Qualified Code(s): T50.901A - Poisoning by unspecified drugs, medicaments and biological substances, accidental (unintentional), initial encounter Patient Disposition: Home, Self-Care Instructions: Adult Overdose (ED) Additional Instructions: Overdose You were seen in our Emergency Department for an overdose today. You received narcan in order to reverse the effects of overdose. Narcan only lasts about 45 min to 1 hour in the system. You may have been given narcan to take home with you today, please keep it near you if you are going to use again, so others can use it if needed.? The number one risk for fatal overdose is using alone? [facility] is a / hotline where you can be on the phone with someone while you use, and they can call for help if they suspect an overdose: [phone] Things to look out for when you leave include severe vomiting or diarrhea, headaches, muscle cramps, fever, coughing, chest pain, or if you feel so short of breath you cannot walk to the bathroom. Please seek care and return any time for worsening symptoms.? You may have been provided with safer injection?items, please take time to take care of YOU and your health. Use new supplies whenever possible to lessen the chances of infections and other illnesses.? If you need more supplies, please go [facility],? [address] [place] [address] OR you can call or text to coordinate delivery of safer supplies. If you decide you want to stop or cut down on how much you?re using, please call the numbers on the list provided to you or you can come to our outpatient Addiction Treatment office [facility] (M-F 9am-5p) [address] [place] [address], [facility] [address] [place], [place]. [phone] Prescriptions: No Action amoxicillin-pot clavulanate 875-125 mg tablet 1 tab PO BID Qty: 14 0RF Print Language: Unable To Collect
[2025-05-01 16:28] VITALS: BP 125/74; PULSE 100; RESP 16; O2SAT 98; BMI 19.0
[2025-05-01 16:40] VITALS: BP 119/59; PULSE 80; RESP 16; TEMP 37.2; O2SAT 96
--- NOTE | 2025-05-01 16:41 | PC.NURSE ---
Addendum entered by Prabha Morales RN 05/01/25 17:05: once patient fell asleep in [address]. vitals were able to be completed, VSS at this time, cont. o2 monitoring in place. resp even and unlabored. Original Note: patient presented to the ED via ems, was found outside liquor store was given 8mg narcan by responding officers. patient arrived to ED agitated, threatening staff, swearing. patient uncooperative during change director, removed clothing hallway. patient given gown and put gown on. security at bedside for change director. belongings inventoried and placed on shelf 2.
--- NOTE | 2025-05-01 19:00 | PC.NURSE ---
this rn assumed care of pt, pt resting in stretcher in [place], no acute distress noted
[2025-05-01] MEDS: Naloxone HCl Nasal TAKE HOME 4 MG SPRAY 8 MG NOSTRILALT (19:59)
[2025-05-01 20:01] VITALS: BP 113/65; PULSE 85; RESP 15; TEMP 36.6; O2SAT 97
--- NOTE | 2025-05-01 20:01 | PC.NURSE ---
pt awake at this time, given take home narcan at this time and understands dc instructions at this time
[2025-05-01 20:02] VITALS: BP 113/65; PULSE 85; RESP 15; TEMP 36.6; O2SAT 97
== END 2025-05-01 20:12 | disposition home or self-care (01) ==
PROVIDERS: Emergency Provider Internal Medicine
DX: T50.901A Poisoning by unspecified drugs, medicaments and biological substances, accidental (unintentional), initial encounter (principal); R40.4 Transient alteration of awareness; Y92.410 Unspecified street and highway as the place of occurrence of the external cause; F19.10 Other psychoactive substance abuse, uncomplicated; R45.1 Restlessness and agitation; Z59.00 Homelessness unspecified; F17.200 Nicotine dependence, unspecified, uncomplicated
CPT/HCPCS: 99282; 99283

== ENCOUNTER 2025-05-06 03:59 | Emergency (ER) | payer OTHER, SELFPAY ==
[2025-05-06 04:03] VITALS: BP 129/78; BP 140/82; PULSE 89; PULSE 96; RESP 15; TEMP 36.9; O2SAT 95; O2SAT 97; BMI 22.1
--- NOTE | 2025-05-06 04:12 | PC.NURSE ---
[place] a&[place], respirations even and unlabored. per ems, pt took unknown drug of an unknown amount, pt unresponsive on scene, 8mg naracan given by ems, pt bagged. after narcan pt fully alert and conscious. on arrival, security at bedside, pt changed over, pt verbally aggressive with staff but cooperative. 18g in right ac by ems
--- NOTE | 2025-05-06 04:57 | ED.OVERDOSE ---
HPI - Overdose General Chief Complaint: Overdose Stated Complaint: Overdose Time Seen by Provider: 05/06/25 04:06 History of Present Illness ED Provider: Peterson Luz MD HPI Narrative: 39-year-old male who offers me no additional history he is quite ordinary and yelling at me. Triage nurse tells me that EMS brought the patient in after he received naloxone for suspected opioid overdose from outside [facility]. There was no reported injury convulsive activity on EMS report to triage nurse. Patient has been community given and was searched by security but was angry and yelling. Related Data Previous Rx's ?Medication ?Instructions ?Recorded amoxicillin 875 mg-potassium 1 tab PO BID #14 tabs 11/21/24 clavulanate 125 mg tablet Allergies Allergy/AdvReac Type Severity Reaction Status Date / Time No Known Allergies Allergy Verified 05/06/25 04:06 [facility] Past Medical History Medical History Polysubstance abuse Overdose Social History Social History Housing: Homeless Unable to assess alcohol history related to: Unknown and Refusing to respond Alcohol intake: current Alcohol intake frequency: 0-2 drinks per day Alcohol type: hard liquor Patient Tobacco Use Status: Current everyday Tobacco user Smoked in Last 30 Days: Yes Use of substances other than those prescribed or required for medical reasons: No Substance Use Type: Heroin Advance Directives: No Advance Directives Information Provided: Yes Do you have a plan to hurt others: No Plan Physical Exam Exam: Exam: GENERAL: Well appearing. No apparent distress. Sleepy, arousable with loud verbal stim HEAD/NECK: No visual trauma. EYES: Normal to inspection. No conjunctival erythema. No discharge. ENMT: Hearing grossly normal. External nose normal. RESPIRATORY: Respiratory effort normal. CARDIOVASCULAR: Additional details (Grossly well perfused). SKIN: No jaundice. NEUROLOGICAL: Alert. Moving all extremities x4. Additional details (No gross motor deficits. Normal tone. ). PSYCHIATRIC: Alert. Appearance appropriate for situation. Vital Signs: Vital Signs: Last Vital Signs Temp 98.1 F 05/06/25 16:11 Pulse 52 05/06/25 16:11 Resp 16 05/06/25 16:11 BP 119/66 05/06/25 16:11 Pulse Ox 97 05/06/25 16:11 O2 Del Method Room Air 05/06/25 16:11 BMI result Body Mass Index 22.1 Medications Administered Discontinued Medications Generic Name Dose Route Start Last Admin Trade Name Tristan PRN Reason Stop Dose Admin Methadone HCl 30 mg 05/06/25 15:53 05/06/25 16:08 Methadone Hcl 20 Mg/2 Ml Oral.Conc PO 05/06/25 15:54 Not Given ONCE ONE Naloxone HCl 8 mg 05/06/25 05:01 05/06/25 16:02 Naloxone Hcl Nasal Take Home 4 Mg [place] NOSTRILALT 05/06/25 05:02 Not Given ONCE ONE Naloxone HCl 8 mg 05/06/25 15:59 05/06/25 16:09 Naloxone Hcl Nasal Take Home 4 Mg [place] NOSTRILALT 05/06/25 16:00 Not Given ONCE ONE Medical Decision Making Medical Decision Making MDM Narrative: Medical Decision Makin-year-old male with presumed opioid overdose response to naloxone in the field. No report of injury nor any overt external signs of injury on on limited exam he does not cooperate fully with this on my examination at about 04:30. Preliminary Favored Differential Diagnosis: Opioid overdose, polysubstance use disorder, psychosocial issue, psychiatric illness among additional considered etiologies Testing Interpreted Independently: Not Applicable Radiology or Lab testing Results Reviewed: Not Applicable Consults: Not Applicable Independent Historians/External Chart Reviews: Not Applicable Social Determinants of Health Impacting MDM/Planning: Not Applicable I took over patient's case in the change of shift. At approximately 09:00 in the morning patient is sleeping no acute distress. Will discharge when patient awakes. Breathing normally. No respiratory depression. In stable condition. Patient now wants detox. Care team involved. At approximately 15:50. Patient does not want detox anymore. motor coach driver involved. Patient does want 1 dose of methadone. Will give 30 mg of methadone x1. Patient is to follow-up in the clinic tomorrow. In stable condition. Differential Diagnosis Differential Diagnoses: The differential diagnosis associated with the presentation includes (Polysubstance abuse) Admission/Observation Consideration of admission/observation: Escalation of care including admission/observation considered Lab Data MDM Lab Attestation statement: I reviewed the patient's lab results. Discharge Plan Discharge Clinical Impression: Drug overdose Overdose Qualifiers: Encounter type: initial encounter Injury intent: accidental or unintentional Qualified Code(s): T50.901A - Poisoning by unspecified drugs, medicaments and biological substances, accidental (unintentional), initial encounter Patient Disposition: Home, Self-Care Instructions: Adult Overdose (ED) Prescriptions: No Action amoxicillin-pot clavulanate 875-125 mg tablet 1 tab PO BID Qty: 14 0RF Referrals: Physician,Unknown J [Primary Care Provider, Medical] - 2 days Referral Note: Please go to detox. Please follow-up as per middle [employer] baseball [employer] Interventions: ED Discharge Assessment Last Done: 05/06/25 16:11 Discharge Date/Time: 05/06/25 16:12 Print Language: Samoan
--- NOTE | 2025-05-06 06:05 | PC.NURSE ---
pt awake and using urinal at bedside, pt refusing vitals at this time, provider aware
--- NOTE | 2025-05-06 09:08 | MHC.RECOVRN ---
Addendum entered by Collin Sandhu RN 05/06/25 14:37: Still no urine sample has been obtained. Pt unable to be placed for detox without utox. Addendum entered by Collin Sandhu RN 05/06/25 13:43: No utox as of yet. Pt has been encouraged x3 to provide one elisabeth. RN aware. Original Note: Pt requesting to go to detox. Referrals to be sent on pt's behalf.
[2025-05-06 10:00] VITALS: BP 128/74; PULSE 80; RESP 16; TEMP 36.9; O2SAT 97
--- NOTE | 2025-05-06 10:42 | PC.NURSE ---
Addendum entered by Carine Smith RN 05/06/25 10:42: Patient presents from outside [facility] with a suspected opiate overdose. Received Narcan in the field. Has been sleeping but arrousable to verbal, quickly falls back to sleep. Patient unkempt and maladorous. Respirations even and non-labored. Abdomen flat soft, non-tender with positive bowel sounds. Positive pedal pulses with no edema. Will provide intranasal narcan upon discharge. Original Note: Medical History Polysubstance abuse Overdose
[2025-05-06 11:34] VITALS: BP 119/66; PULSE 52; RESP 16; TEMP 36.7; O2SAT 97
--- NOTE | 2025-05-06 15:57 | MHC.RECOVRN ---
Pt now requesting D/C.
--- NOTE | 2025-05-06 16:09 | PC.NURSE ---
Patient offered a detox bed beginning tomorrow. Plan to initiate methadone. Patient belligerent and agitated, stating he does not want to stay at this time. Refused the methadone and the take home narcan. Belongings returned to patient. Security notified and assisted with discharge
[2025-05-06 16:11] VITALS: BP 119/66; PULSE 52; RESP 16; TEMP 36.7; O2SAT 97
== END 2025-05-06 16:12 | disposition home or self-care (01) ==
PROVIDERS: Emergency Provider Emergency Medicine
DX: T65.91XA Toxic effect of unspecified substance, accidental (unintentional), initial encounter (principal); Y92.481 Parking lot as the place of occurrence of the external cause
CPT/HCPCS: 99284; 99285; S9485